=== PATIENT | male | born 1945 | race Hispanic/Latino ===

== ENCOUNTER 2017-10-23 21:01 | Inpatient (IN) | payer OTHER ==
--- OUTSIDE RECORDS SUMMARY | 2017-10-23 21:03 | XMS REPORT | Clinical Summary ---
:1945 Author Organization [facility] Address [address] [place] [address] Care Team Providers Name Role Phone Asked, No Pcp Primary Care Provider Unavailable Allergies Active Allergy Reactions Severity Noted Date Comments No Known Drug Allergies 10/10/2015 Current Medications Prescription Sig. Disp. Refills Start Date End Date Status nitroglycerin Place 1 tablet 90 tablet 1 11/30/2015 Active (NITROSTAT) 0.4 MG (0.4 mg total) SL tablet under the tongue every 5 (five) minutes as needed for chest pain for up to 90 doses. amIODarone Take 200 mg by Active (PACERONE) 200 MG mouth 2 (two) tablet times a day. carvedilol (COREG) Take 25 mg by Active 25 MG tablet mouth 2 (two) times a day with meals. At noon and bedtime potassium chloride Take 20 mEq by Active (K-DUR) 20 MEQ CR mouth 2 (two) tablet times a day. At 7 am and noon furosemide (LASIX) Take 40 mg by Active 40 mg tablet mouth 2 (two) times a day. At 7 am and noon apixaban (ELIQUIS) Take 5 mg by Active 5 mg tablet mouth 2 (two) times a day. aspirin (ECOTRIN) Take 1 tablet 30 tablet 0 09/25/2017 Active 81 MG enteric (81 mg total) 8 coated tablet by mouth daily for 30 days. digOXIN (LANOXIN) Take 1 tablet 30 tablet 0 09/25/2017 Active 125 mcg tablet (125 mcg total) 8 by mouth daily for 30 days. amIODarone TK 1 T PO D 5 11/08/2015 Discontinued (PACERONE) 100 MG 8 tablet ELIQUIS 5 mg tablet TK 1 T PO BID 5 10/31/2015 Discontinued 8 carvedilol (COREG) TAKE ONE TABLET 0 10/07/2015 Discontinued 25 MG tablet PO BID 8 lisinopril TAKE ONE TABLET 1 10/07/2015 Discontinued (PRINIVIL,ZESTRIL) PO BID 8 20 MG tablet metFORMIN TK 1 T PO BID 4 09/13/2015 Discontinued (GLUCOPHAGE) 500 MG 8 tablet omeprazole TK 1 C PO D 3 11/04/2015 Discontinued (PriLOSEC) 20 MG 8 capsule potassium chloride TK 1 T PO QD 1 11/04/2015 Discontinued (K-DUR) 20 MEQ CR 8 tablet ranitidine (ZANTAC) TK 1 T PO BID 2 10/04/2015 Discontinued 150 MG tablet ONLY TAKE WHEN 8 HAVING HEARTBURN sacubitril-valsarta Take 1 tablet Discontinued n (ENTRESTO) 49-51 by mouth 2 8 mg tablet per (two) times a tablet day. Active Problems Problem Noted Date Acute renal insufficiency 09/20/2017 CHF (congestive heart failure) 11/28/2015 Encounters Date Type Specialty Care Team Description 09/19/2017 - Hospital Encounter General Internal Petr, Acute renal insufficiency (Primary Dx); 09/24/2017 Medicine Tristin Miller, Congestive heart failure, unspecified congestive heart failure chronicity, unspecified congestive heart failure type; DO Tachycardia; Preston Snell, Hyperkalemia after 10/22/2016 Social History Tobacco Use Types Packs/Day Years Used Date Never Smoker Smokeless Tobacco: Never Used Alcohol Use Drinks/Week oz/Week Comments No Sex Assigned at Date Recorded Not on file Last Filed Vital Signs Vital Sign Reading Time Taken Blood Pressure 99/81 09/24/2017 2:50 PM CDT Pulse 70 09/24/2017 2:50 PM CDT Temperature 35.9 C (96.6 F) 09/24/2017 11:06 AM CDT Respiratory Rate 18 09/24/2017 2:50 PM CDT Oxygen Saturation 99% 09/24/2017 2:50 PM CDT Inhaled Oxygen Concentration - - Weight 89.4 kg (197 lb) 09/20/2017 7:15 AM CDT Height 170.2 cm (5' 7") 09/19/2017 9:04 PM CDT Body Mass Index 30.85 09/20/2017 7:15 AM CDT Plan of Treatment Health Maintenance Due Date Last Done Comments COLON CANCER SCREENING 1996 SHINGRIX VACCINE (#1) 1996 ZOSTER VACCINE 2006 PNEUMOCOCCAL POLYSACCHARIDE VACCINE AGE 65 AND OVER 07/29/2011 PNEUMOCOCCAL-13 07/29/2011 INFLUENZA VACCINE 12/26/2017 Procedures Procedure Name Priority Date/Time Associated Comments Diagnosis ECHOCARDIOGRAM 2D Routine 09/21/2017 11:01 Results for this COMPLETE W MMODE AM CDT procedure are in SPECTRAL COLOR DOPPLER the results (71762) section. after 10/22/2016 Results POC glucose (09/24/2017 4:39 PM)Only the most recent of16 resultswithin the time period is included. Component Value Ref Range POC glucose 113 (H) 65 - 99 mg/dL Comment: [facility] Notified RN Meter ID: [id number] Commercial Census Taker: Onesimo Don Specimen Performing Laboratory [facility] DEPARTMENT OF PATHOLOGY AND GENOMIC MEDICINE [address] [place] [id number] Estimated GFR (09/24/2017 4:00 AM)Only the most recent of5 resultswithin the time period is included. Component Value Ref Range GFR Non Af Amer 43 (A) mL/min/1.73 m2 GFR Af Amer 52 (A) mL/min/1.73 m2 Comment: Chronic kidney disease: <60 mL/min/1.73m2 Kidney failure: <15 mL/min/1.73m2 The estimated GFR is calculated from the IDMS-traceable Modification of Diet in Renal Disease Equation. The accuracy of the calculation is poor when the creatinine is normal. Calculated values >90 mL/min/1.73m2 are not reported. This equation has not been validated in children (<18 years), women, the elderly (>70 years), or ethnic groups other than Caucasians and Americans. Specimen Performing Laboratory Plasma specimen [facility] DEPARTMENT OF PATHOLOGY AND GENOMIC MEDICINE [address] [place] [address] Phosphorus level (09/24/2017 4:00 AM) Component Value Ref Range Phosphorus 3.5 2.4 - 4.5 mg/dL Specimen Performing Laboratory Plasma specimen [facility] DEPARTMENT OF PATHOLOGY AND GENOMIC MEDICINE [address] [place] [address] Magnesium level (09/24/2017 4:00 AM) Component Value Ref Range Magnesium 2.4 1.6 - 2.4 mg/dL Specimen Performing Laboratory Plasma specimen [facility] DEPARTMENT OF PATHOLOGY AND [address] [address] Hepatic function panel (09/24/2017 4:00 AM) Component Value Ref Range Albumin 3.4 (L) 3.5 - 5.0 g/dL Total bilirubin 2.3 (H) 0.0 - 1.2 mg/dL Bilirubin direct 0.6 (H) 0.0 - 0.3 mg/dL Alkaline phosphatase 59 40 - 129 U/L Protein 6.8 6.3 - 8.3 g/dL Comment: [place] 4.6-7.0 g/dL 1 week 4.4-7.6 g/dL 7 months-1year5.1-7.3 g/dL 1-2 years5.6-7.5 g/dL >3 years6.0-8.0 g/dL 18-150 6.3-8.3 g/dL ALT 39 5 - 50 U/L AST 43 10 - 50 U/L Specimen Performing Laboratory Plasma specimen [facility] DEPARTMENT OF PATHOLOGY AND [address] [address] Basic metabolic panel (09/24/2017 4:00 AM)Only the most recent of4 resultswithin the time period is included. Component Value Ref Range Sodium 141 135 - 148 mEq/L Potassium 4.0 3.5 - 5.0 mEq/L Chloride 98 98 - 112 mEq/L CO2 28 24 - 31 mEq/L Anion gap 15 7 - 15 mEq/L Comment: Starting from August , anion gap calculation no longer incorporates potassium. Please note the change. BUN 27 (H) 8 - 23 mg/dL Creatinine 1.6 (H) 0.7 - 1.2 mg/dL Glucose 114 (H) 65 - 99 mg/dL Calcium 8.7 (L) 8.8 - 10.2 mg/dL Specimen Performing Laboratory Plasma specimen [facility] DEPARTMENT OF PATHOLOGY AND [facility] MEDICINE [address] [place] [address] XR Chest 2 Vw (09/23/2017 8:34 AM) Specimen Performing Laboratory [address] [address] Narrative EXAMINATION:XR CHEST 2 VW CLINICAL HISTORY:Congestive Heart Failure COMPARISON:September 20 IMPRESSION: Atelectasis or infiltrate in the right lower lobe right-sided pleural effusion Left lung is clear Heart is slightly enlarged Degenerative changes are present throughout the bony structures without evidence of a suspicious focal lesion. Diffuse calcified atherosclerotic vascular disease throughout the arterial structures. [facility]-[id number] Procedure Note Hm Interface, Radiology Results Incoming - 09/23/2017 8:48 AM CDT EXAMINATION: XR CHEST 2 VW CLINICAL HISTORY: Congestive Heart Failure COMPARISON: September 20 IMPRESSION: Atelectasis or infiltrate in the right lower lobe right-sided pleural effusion Left lung is clear Heart is slightly enlarged Degenerative changes are present throughout the bony structures without evidence of a suspicious focal lesion. Diffuse calcified atherosclerotic vascular disease throughout the arterial structures. [facility]-[id number] Echocardiogram complete w contrast and 3D if needed (09/21/2017 11:01 AM) Specimen Performing Laboratory [facility] [address] [place] [address] Narrative Echocardiography Report [address] [place] [address] Pat.Name:LINDEN CORBETT Pat.ID:[id number] .Date: 09/21/2017 Refer.MD:LUCAS DELGADO MD Exam Time: 10:01:00 AM Study Type:Routine Echo Height:66inWeight: 197lb BSA: 1.99 m2 DOBAge:1945,72Y Sex: MALEBP:112/65 Sonogrphr: Ced Cohen MD/MEREDITH ARVIZU, RD, ROMAN Pat. Stat.:Inpatient Room:[id number] Status:Final Echo Event ID:[id number] Order ID:[id number] Reason for Study:HF; re-eval therapy guidance History / Clinical:Diabetes, Hypertension, High Cholesterol, CHF, Cardiac Arrast (2007) Procedures:2D Echo, Colorflow Doppler, Intravenous Definity Contrast Race:C SUMMARY: LV EF is severely depressed. LV filling pressure is elevated. Estimated PA systolic pressure is 41 mmHg, assuming a mean RAP of 5 mmHg. FINDINGS: LV: LV size is severely enlarged. There is mild eccentric LV hypertrophy.LV EF is severely depressed. Overall wall motionis hypokinetic. Estimated EF is 20-24%. RV: RV size is moderately enlarged. A pacemaker wire is seen in theRV. RV systolic function is moderately to severely depressed. LA: LA volume is severely enlarged. RA: RA volume is severely enlarged. A pacemaker wire is seen. AO: Aortic root diameter is normal. ARLYN: Trace posterior pericardial effusion. AV: No structural AV abnormalities noted. Mild aortic regurgitation. MV: No structural MV abnormalities noted. Mild mitral regurgitation.Etiology of MR is secondary to LV dysfunctionand remodeling. PV: No structural PV abnormalities noted. A trace of pulmonic regurgitation. TV: Dilated tricuspid annulus. Mild tricuspid regurgitation Mcdaniel: LV relaxation is impaired. LV filling pressure is elevated. Other:Estimated PA systolic pressure is 41 mmHg, assuming a mean RAPof 5 mmHg. MEASUREMENTS: 2D Parasternal [place] LVOT 2 cmLA Ds5.3 cm LVIDd6.9 cmIndex 3.5 cm/m Ao Rtd 2.9 cm Index1.5 cm/m LVIDs6.3 cm LV Lpui720.4 g(122-174) LV%fs8.8 % LVM Oyrae452.8 g/m2 IVSd 0.7 cmRWT0.2 LVPWd0.8 cm LA Sng Plane LA Area 36.6 cm2(8.8-23.4) LA Vol 143 ml Index71.8 ml/m LA LngAx 8 cm RA Sng Plane RA Area 26.6 cm2(8.3-19.5) RA Vol 103.8 ml Index52.2 ml/m RA LngAx 5.8 cm Signed 09/21/2017 05:03 PM Kevin Wu M.D. Procedure Note Interface, Radiology Results In - 09/21/2017 5:04 PM CDT Echocardiography Report [address] [place] [address] Pat.Name: LINDEN CORBETT Pat.ID: [id number] .Date: 09/21/2017 Refer.MD: LUCAS DELGADO MD Exam Time: 10:01:00 AM Study Type:Routine Echo Height: 66in Weight: 197lb BSA: 1.99 m2 Age: 4 1945,72Y Sex: MALE BP: 112/65 Sonogrphr: Ced Cohen MD/[facility], [facility], [facility]ITAL[facility]yn[facility]do Pat. Stat.:Inpatient Room: [facility] Study Status:Final Echo Event ID:[id number] Order ID: [id number] Reason for Study:HF; re-eval therapy guidance History / Clinical:Diabetes, Hypertension, High Cholesterol, CHF, Cardiac Arrast (2007) Procedures:2D Echo, Colorflow Doppler, Intravenous Definity Contrast Race: C SUMMARY: LV EF is severely depressed. LV filling pressure is elevated. Estimated PA systolic pressure is 41 mmHg, assuming a mean RAP of 5 mmHg. FINDINGS: LV: LV size is severely enlarged. There is mild eccentric LV hypertrophy. LV EF is severely depressed. Overall wall motion is hypokinetic. Estimated EF is 20-24%. RV: RV size is moderately enlarged. A pacemaker wire is seen in the RV. RV systolic function is moderately to severely depressed. LA: LA volume is severely enlarged. RA: RA volume is severely enlarged. A pacemaker wire is seen. AO: Aortic root diameter is normal. ARLYN: Trace posterior pericardial effusion. AV: No structural AV abnormalities noted. Mild aortic regurgitation. MV: No structural MV abnormalities noted. Mild mitral regurgitation. Etiology of MR is secondary to LV dysfunction and remodeling. PV: No structural PV abnormalities noted. A trace of pulmonic regurgitation. TV: Dilated tricuspid annulus. Mild tricuspid regurgitation Mcdaniel: LV relaxation is impaired. LV filling pressure is elevated. Other: Estimated PA systolic pressure is 41 mmHg, assuming a mean RAP of 5 mmHg. MEASUREMENTS: 2D Parasternal [place] LVOT 2 cm LA Ds 5.3 cm LVIDd 6.9 cm Index 3.5 cm/m Ao Rtd 2.9 cm Index 1.5 cm/m LVIDs 6.3 cm LV Mass 228.4 g (122-174) LV%fs 8.8 % LVM Index 114.8 g/m2 IVSd 0.7 cm RWT 0.2 LVPWd 0.8 cm LA Sng Plane LA Area 36.6 cm2 (8.8-23.4) LA Vol 143 ml Index 71.8 ml/m LA LngAx 8 cm RA Sng Plane RA Area 26.6 cm2 (8.3-19.5) RA Vol 103.8 ml Index 52.2 ml/m RA LngAx 5.8 cm Signed 09/21/2017 05:03 PM Kevin Wu M.D. ECG 12 lead (09/21/2017 8:52 AM)Only the most recent of2 resultswithin the time period is included. Component Value Ref Range Ventricular rate 116 Atrial rate 116 IA interval 112 QRSD interval 162 QT interval 380 QTC interval 528 P axis 1 88 QRS axis 1 -47 T wave axis 128 EKG impression Electronic ventricular pacemaker-In automated comparison with ECG of 19-SEP-2017 21:09,-Vent. rate has increased BY 10 BPM- Specimen Performing Laboratory [facility] MUSE [address] [place] [phone] US Renal (09/20/2017 5:40 PM) Specimen Performing Laboratory [facility] [address] [place] [address] Narrative EXAMINATION:US RENAL CLINICAL HISTORY:Evaluate size and position of the kidneys COMPARISON:None. TECHNIQUE:Ultrasound evaluation of the kidneys and bladder. IMPRESSION: 1.The right kidney measures 11.2 x 4.9 x 4.3 cm.The left kidney measures 10.7 x 4.7 x 4.4 cm.There is bilateral increased renal cortical echogenicity compatible with renal parenchymal disease. 2.No hydronephrosis or solid mass lesions. 3.Mild bladder wall thickening cannot be excluded. [facility]-[id number] Procedure Note Interface, Radiology Results Incoming - 09/20/2017 7:06 PM CDT EXAMINATION: US RENAL CLINICAL HISTORY: Evaluate size and position of the kidneys COMPARISON: None. TECHNIQUE: Ultrasound evaluation of the kidneys and bladder. IMPRESSION: 1. The right kidney measures 11.2 x 4.9 x 4.3 cm. The left kidney measures 10.7 x 4.7 x 4.4 cm. There is bilateral increased renal cortical echogenicity compatible with renal parenchymal disease. 2. No hydronephrosis or solid mass lesions. 3. Mild bladder wall thickening cannot be excluded. [facility]-[id number] Urine protein electrophoresis, random (09/20/2017 3:26 PM) Component Value Ref Range Urine protein concentration 62 mg/dL UPE albumin 79.2 % UPE globulin 20.8 % UPE extended interpretation See Comment Comment: An abnormal random urine protein study with proteinuria equivalent to 620 mg/L. The proteinuria is in a glomerular pattern. UPE interpretation See CommentComment: Lyn Zurita, PhD; Sola Dupree, PhD; Roxy Davis MD Specimen Performing Laboratory Urine [facility] DEPARTMENT OF PATHOLOGY AND GENOMIC MEDICINE [address] [place] [address] Urinalysis, automated with microscopy (09/20/2017 3:26 PM) Component Value Ref Range Color, UA Viky Appearance, UA Clear Specific gravity, UA 1.018 1.001 - 1.035 pH, UA 5.0 5.0 - 8.5 Protein, UA 2+ (A) Negative Glucose, UA Negative Negative Ketones, UA Negative Negative Bilirubin, UA Negative Negative Blood, UA Negative Negative Nitrite, UA Negative Negative Urobilinogen, UA 4.0 (A) <2.0 Leukocyte esterase, UA Negative Negative WBC, UA 1 0 - 1 /HPF RBC, UA None seen 0 - 5 /HPF Bacteria, UA Few None seen Granular casts, UA 3 (H) 0 - 1 /LPF Hyaline casts, UA >20 (A) /LPF Yeast, UA None seen Yeast with pseudohyphae, UA None seen Specimen Performing Laboratory Urine [facility] DEPARTMENT OF PATHOLOGY AND GENOMIC MEDICINE [address] [place] [address] Sedimentation rate (09/20/2017 2:00 PM) Component Value Ref Range Sedimentation rate 4 0 - 10 mm/hr Specimen Performing Laboratory Blood [facility] DEPARTMENT OF PATHOLOGY AND GENOMIC MEDICINE [address] [place] [address] Alpha lambda free light chain with ratio (09/20/2017 1:50 PM) Component Value Ref Range Alpha light chain 37.34 (H) 3.30 - 19.40 mg/L Lambda light chain 15.22 5.70 - 26.30 mg/L Alpha lambda ratio 2.45 (H) 0.26 - 1.65 Specimen Performing Laboratory Plasma specimen [facility] DEPARTMENT OF PATHOLOGY AND [facility] MEDICINE [address] [place] [address] Serum electrophoresis (09/20/2017 1:50 PM) Component Value Ref Range Protein 6.6 6.3 - 8.3 g/dL Comment: 4.6-7.0 g/dL 1 week 4.4-7.6 g/dL 7 months-1year5.1-7.3 g/dL 1-2 years5.6-7.5 g/dL >3 years6.0-8.0 g/dL 18-150 6.3-8.3 g/dL SPE albumin 4.30 4.00 - 5.30 g/dL SPE alpha 1 0.15 0.10 - 0.25 g/dL SPE alpha 2 0.53 (L) 0.58 - 0.84 g/dL SPE beta 0.69 0.50 - 1.10 g/dL SPE gamma 0.94 0.60 - 1.30 g/dL SPE extended interpretation See Comment Comment: Alpha-2 globulins are decreased most likely due to decreased haptoglobin and/or alpha-2 macroglobulin. SPE interpretation See CommentComment: Lyn Zurita, PhD; Sola Dupree, PhD; Roxy Davis MD Specimen Performing Laboratory Serum [facility] DEPARTMENT OF PATHOLOGY AND GENOMIC MEDICINE [address] [place] [address] Troponin (09/20/2017 3:13 AM)Only the most recent of2 resultswithin the time period is included. Component Value Ref Range Troponin <0.30 0.00 - 0.30 ng/mL Comment: 0.30 - 1.49 ng/mlMay indicate increased risk of acute coronary syndrome. >=1.5 ng/mlConsistent with acute myocardial infarction. The diagnostic value of a single normal or non-diagnostic result is questionable.Serial samples at 2-6 hour intervals are required to rule out acute myocardial injury. Specimen Performing Laboratory Plasma specimen [facility] DEPARTMENT OF PATHOLOGY AND GENOMIC MEDICINE [address] [place] [address] XR Chest 1 Vw Portable (09/20/2017 1:00 AM) Specimen Performing Laboratory [facility] [address] [place] [address] Narrative EXAMINATION: XR CHEST 1 VW PORTABLE CLINICAL HISTORY: Chest Pain, SHORTNESS OF BREATH COMPARISON:06/08/2015 chest x-ray. IMPRESSION: Patchy right basilar airspace disease could most likely represents atelectasis although pneumonia not entirely excluded. Small right pleural effusion.Left pleural space is normal. Enlarged cardiac silhouette similar to the prior study.Left chest cardiac device. No acute osseous abnormalities. [facility]-[id number] Procedure Note Interface, Radiology Results Incoming - 09/20/2017 1:06 AM CDT EXAMINATION: XR CHEST 1 VW PORTABLE CLINICAL HISTORY: Chest Pain, SHORTNESS OF BREATH COMPARISON: 06/08/2015 chest x-ray. IMPRESSION: Patchy right basilar airspace disease could most likely represents atelectasis although pneumonia not entirely excluded. Small right pleural effusion. Left pleural space is normal. Enlarged cardiac silhouette similar to the prior study. Left chest cardiac device. No acute osseous abnormalities. [facility]-[id number] ECG ED Preliminary Interpretation - NOT AN ORDER (09/20/2017 12:27 AM) Narrative Tristin Hammond DO 09/20/20172:43 AM ECG ED Preliminary Interpretation - Not an Order Performed by: TRISTIN HAMMOND Authorized by: TRISTIN HAMMOND ECG reviewed by ED Physician in the absence of a tape stringer: yes Previous ECG: Previous ECG:Unavailable Interpretation: Interpretation: abnormal Rate: ECG rate:106 ECG rate assessment: tachycardic Rhythm: Rhythm: paced QRS: QRS intervals:Wide (712) ST segments: ST segments:Normal T waves: T waves: normal Other findings: Other findings: prolonged qTc interval Other findings comment:547 Partial thromboplastin time, activated (09/19/2017 9:46 PM) Component Value Ref Range PTT 43.5 (H) 23.0 - 36.0 sec Comment: PTT therapeutic range for unfractionated heparin is 61.0-112.0 seconds which corresponds to Anti-Xa 0.3-0.7 U/ml. Specimen Performing Laboratory Blood [facility] DEPARTMENT OF PATHOLOGY AND GENOMIC MEDICINE [address] [place] [address] Prothrombin time with INR (09/19/2017 9:46 PM) Component Value Ref Range Prothrombin time 35.8 (H) 12.0 - 15.0 sec INR 3.5 Comment: The International Normalized Ratio (INR) is a therapeutic monitoring tool for patients who are stable on oral anticoagulant therapy. An INR of 2.0-3.0 is suggested for deep vein thrombosis/pulmonary embolism. Specimen Performing Laboratory Blood [facility] DEPARTMENT OF PATHOLOGY AND GENOMIC MEDICINE [address] [place] [address] CBC with platelet and differential (09/19/2017 9:46 PM) Component Value Ref Range WBC 7.21 4.50 - 11.00 k/uL RBC 5.76 4.40 - 6.00 m/uL HGB 17.5 14.0 - 18.0 g/dL HCT 54.5 (H) 41.0 - 51.0 % MCV 94.6 82.0 - 100.0 fL MCH 30.4 27.0 - 34.0 pg MCHC 32.1 31.0 - 37.0 g/dL RDW - SD 47.8 37.0 - 55.0 fL MPV 11.3 8.8 - 13.2 fL Platelet count 172 150 - 400 k/uL Nucleated RBC 0.00 /100 WBC Neutrophils 64.3 39.0 - 69.0 % Lymphocytes 24.8 (L) 25.0 - 45.0 % Monocytes 10.3 (H) 0.0 - 10.0 % Eosinophils 0.1 0.0 - 5.0 % Basophils 0.4 0.0 - 1.0 % Immature granulocytes 0.1Comment: "Immature granulocytes" 0.0 - 1.0 % (promyelocytes, myelocytes, metamyelocytes) Specimen Performing Laboratory Blood [facility] DEPARTMENT OF PATHOLOGY AND [facility] MEDICINE [address] [place] [address] B natriuretic peptide (09/19/2017 9:46 PM) Component Value Ref Range BNP 1,056 (H) 0 - 100 pg/mL Specimen Performing Laboratory Blood [facility] DEPARTMENT OF PATHOLOGY AND [facility] MEDICINE [address] [place] [address] Creatine kinase, total (CPK) (09/19/2017 9:46 PM) Component Value Ref Range Creatine kinase 65 39 - 308 U/L Specimen Performing Laboratory Plasma specimen [facility] DEPARTMENT OF PATHOLOGY AND [address] [address] Comprehensive metabolic panel (09/19/2017 9:46 PM) Component Value Ref Range Sodium 137 135 - 148 mEq/L Potassium 5.1 (H) 3.5 - 5.0 mEq/L Chloride 99 98 - 112 mEq/L CO2 24 24 - 31 mEq/L Anion gap 14 7 - 15 mEq/L Comment: Starting from August , anion gap calculation no longer incorporates potassium. Please note the change. BUN 29 (H) 8 - 23 mg/dL Creatinine 1.7 (H) 0.7 - 1.2 mg/dL Glucose 131 (H) 65 - 99 mg/dL Calcium 8.8 8.8 - 10.2 mg/dL Protein 7.2 6.3 - 8.3 g/dL Comment: 4.6-7.0 g/dL 1 week 4.4-7.6 g/dL 7 months-1year5.1-7.3 g/dL 1-2 years5.6-7.5 g/dL >3 years6.0-8.0 g/dL 18-150 6.3-8.3 g/dL Albumin 3.6 3.5 - 5.0 g/dL A/G ratio 1.0 0.7 - 3.8 Alkaline phosphatase 66 40 - 129 U/L AST 48 10 - 50 U/L ALT 32 5 - 50 U/L Total bilirubin 2.2 (H) 0.0 - 1.2 mg/dL Specimen Performing Laboratory Plasma specimen [facility] DEPARTMENT OF PATHOLOGY AND GENOMIC MEDICINE [address] [place] [address] after 10/22/2016 Insurance Payer Benefit Plan / Group Subscriber ID Type Phone Address MEDICARE MEDICARE PART A AND B xxxxxxxxxx Medicare [place] MEDICA[place] MEDICAID xxxxxxxxx Medicaid [phone] [place] [phone]
[2017-10-23 23:20] LABS: Absolute Lymphocytes (CBC) 1.7 K/uL (0.7-4.9); Absolute Monocytes 0.8 K/uL (0.1-1.3); Basophils % 0.6 % (0-1.3); Eosinophils % 0.3 % (0-4.4); Hematocrit 55.7 % (39.6-49.0); Lymphocytes % 26.5 % (15.3-44.8); MCV 93.9 fL (80-100); MPV 10.1 fL (7.6-11.3); Monocytes % 11.6 % (3.3-12.3); RBC Red Blood Cell Count 5.93 M/uL (4.33-5.43)
[2017-10-24 00:27] LABS: Albumin 3.9 g/dL (3.2-5.5); Bilirubin Direct 0.9 mg/dL (0-0.2); Bilirubin Total 3.6 mg/dL (0.3-1.2); Magnesium 2.3 mg/dL (1.8-2.5); Protein, Total 7.5 g/dL (6.0-8.3)
[2017-10-24 00:31] LABS: Potassium 4.9 mEq/L (3.6-5.0)
--- NOTE | 2017-10-24 01:58 | EDPHYS ---
Physician Documentation [facility] Name: Onesimo Dorantes Age: 72 yrs Sex: Male : 1945 Arrival Date: 10/23/2017 Time: 21:28 Bed 19 Private MD: ED Physician Hubert Arroyo HPI: 10/23 22:42 This 72 yrs old Male presents to ER via Wheelchair with complaints of Fluid rn Retention. 22:42 The patient has shortness of breath at rest, with light activity. Onset: The rn symptoms/episode began/occurred 1 week(s) ago. Duration: The symptoms are continuous. The patient's shortness of breath is aggravated by exertion, light activity, supine position, talking, walking, is alleviated by sitting up. Associated signs and symptoms: Pertinent positives: non-productive cough, Pertinent negatives: chest pain, fever, hemoptysis, loss of consciousness, vomiting. Severity of symptoms: At their worst the symptoms were moderate in the emergency department the symptoms are unchanged. The patient has experienced similar episodes in the past. The patient has been recently seen by a physician:. Reports sob with exertion and orthopnea, + lower ext swelling and abd bloating, unsure if gas or not, normal bowel movements, no fever, no chest pain. Discharged 2 weeks ago for CHF, f/u with pcp, taking lasix and digoxin.. Historical: - Allergies: 21:53 No Known Allergies; lp1 - Home Meds: 21:53 Eliquis 5 mg oral tab 1 tab 2 times per day [Active]; furosemide 40 mg Oral tab 1 tab 2 lp1 times per day [Active]; potassium chloride 20 mEq Oral TbER 1 tab 2 times per day [Active]; carvedilol 25 mg oral tab 1 tab 2 times per day [Active]; - PMHx: 21:53 CHF; Hypertension; Myocardial infarction; lp1 - PSHx: 21:53 Pacemaker/Defibrillator; lp1 21:53 Cholecystectomy; lp1 - Immunization history:: Adult Immunizations up to date. - Social history:: Smoking status: Patient/guardian denies using tobacco. - Ebola Screening: : No symptoms or risks identified at this time. - Family history:: not pertinent. - Hospitalizations: : Patient was recently seen at. ROS: 22:42 Constitutional: Negative for fever, chills, and weight loss, Eyes: Negative for injury, rn pain, redness, and discharge, Neck: Negative for injury, pain, and swelling, Cardiovascular: Negative for chest pain, palpitations Respiratory: Negative for wheezing, and pleuritic chest pain, Abdomen/GI: Negative for nausea, vomiting, diarrhea, and constipation, + abd distension and bloating Back: Negative for injury and pain, MS/Extremity: Negative for injury and deformity, Skin: Negative for injury, rash, and discoloration, Neuro: Negative for headache, numbness, tingling, and seizure. Exam: 22:42 Constitutional: This is a well developed, well nourished patient who is awake, alert, rn and in no acute distress. Head/Face: Normocephalic, atraumatic. Eyes: Pupils equal round and reactive to light, extra-ocular motions intact. Lids and lashes normal. Conjunctiva and sclera are non-icteric and not injected. Cornea within normal limits. Periorbital areas with no swelling, redness, or edema. Neck: Trachea midline Supple, full range of motion without nuchal rigidity, or vertebral point tenderness. No Meningismus. Cardiovascular: Tachycardic, irregular, no murmur Respiratory: + mild tachypnea, no retractions, diminished at bases Abdomen/GI: Soft, non-tender, with normal bowel sounds. No guarding or rebound. No evidence of tenderness throughout. MS/ Extremity: Pulses equal, no cyanosis. Bilateral pitting edema with LLE > RLE. Neuro: Awake and alert, GCS 15, oriented to person, place, time, and situation. Cranial nerves II-XII grossly intact. Motor strength 5/5 in all extremities. Sensory grossly intact. Vital Signs: 21:53 BP 108 / 89; Pulse 115; Resp 18; Temp 97.6(O); Pulse Ox 100% on R/A; Weight 90.72 kg; lp1 Height 5 ft. 7 in. (170.18 cm); Pain 2/10; 23:29 BP 116 / 86; Pulse 110; Resp 19 S; Pulse Ox 100% on R/A; Pain 2/10; jd3 05/30 00:35 BP 114 / 96; Pulse 113; Resp 18 S; Pulse Ox 98% on R/A; Pain 2/10; jd3 01:42 BP 101 / 74; Pulse 113; Resp 18 S; Pulse Ox 99% on R/A; Pain 2/10; jd3 02:34 BP 103 / 91; Pulse 114; Resp 18 S; Pulse Ox 98% on R/A; Pain 2/10; jd3 10/23 21:53 Body Mass Index 31.32 (90.72 kg, 170.18 cm) lp1 MDM: 10/23 22:14 Patient medically screened. rn 10/24 01:56 Differential diagnosis: CHF exacerbation, Pneumothorax pulmonary edema. Data reviewed: rn vital signs, nurses notes, lab test result(s), EKG, radiologic studies, plain films, and as a result, I will admit patient. Counseling: I had a detailed discussion with the patient and/or guardian regarding: the historical points, exam findings, and any diagnostic results supporting the discharge/admit diagnosis, lab results, radiology results, the need for further work-up and treatment in the hospital. Response to treatment: the patient's symptoms have mildly improved after treatment, and as a result, I will admit patient. Admission orders: after a detailed discussion of the patient's condition and case, the admit orders are written by me. 10/23 22:25 Order name: Basic Metabolic Panel; Complete Time: 00: rn 10/23 22:25 Order name: BNP; Complete Time: 00: rn 10/23 22:25 Order name: CBC with Diff; Complete Time: 00:13 rn 10/23 22:25 Order name: LFT's; Complete Time: 00: rn 10/23 22:25 Order name: Magnesium; Complete Time: 00: rn 10/23 22:25 Order name: Troponin (emerg Dept Use Only); Complete Time: 00: rn 10/23 22:25 Order name: XRAY Chest (1 view) rn 10/23 22:25 Order name: EKG; Complete Time: 22:25 rn 10/23 22:25 Order name: Cardiac monitoring; Complete Time: 22:28 rn 10/23 22:25 Order name: Extremity Venous Uni Ltd US rn 10/23 22:25 Order name: Lipase; Complete Time: 00:32 rn 10/24 00:58 Order name: Abdomen EDMS 10/23 22:25 Order name: EKG - Nurse/Tech; Complete Time: 22:56 rn 10/23 22:25 Order name: IV Saline Lock; Complete Time: 23:14 rn 10/23 22:25 Order name: Labs collected and sent; Complete Time: 23:14 rn 10/23 22:25 Order name: O2 Per Protocol; Complete Time: 22:28 rn 10/23 22:25 Order name: O2 Sat Monitoring; Complete Time: 22:27 rn Administered Medications: No medications were administered Disposition: 10/24/17 01:57 Hospitalization ordered by Reilly Taveras for Inpatient Admission. Preliminary diagnosis are Pleural effusion, not elsewhere classified, Dyspnea, unspecified, Unspecified combined systolic (congestive) and diastolic (congestive) heart failure. - Bed requested for Telemetry/MedSurg (Inpatient). - Status is Inpatient Admission. jd3 - Condition is Stable. - Problem is an ongoing problem. - Symptoms have improved. UTI on Admission? No Signatures: Dispatcher [employer] [facility] Jo-Ann Pedraza RN RN dw Hubert Arroyo MD MD rn Pena, Laura, RN RN lp1 Braeden Cabrera RN RN jd3 Betzy Ackerman Corrections: (The following items were deleted from the chart) 00:13 10/23 22:25 Creatinine for Radiology+C.LAB.BRZ ordered. [facility] 10/24 00:58 10/23 22:26 Abdomen Pelvis W Con+CT.RAD.BRZ ordered. [facility] 10/24 02:01 01:57 Hospitalization Ordered by Reilly Taveras MD for Inpatient Admission. Preliminary eb diagnosis is Pleural effusion, not elsewhere classified; Dyspnea, unspecified; Unspecified combined systolic (congestive) and diastolic (congestive) heart failure. Bed requested for Telemetry/MedSurg (Inpatient). Status is Inpatient Admission. Condition is Stable. Problem is an ongoing problem. Symptoms have improved. UTI on Admission? No. rn 02:19 02:01 10/24/2017 01:57 Hospitalization Ordered by Reilly Taveras MD for Inpatient dw Admission. Preliminary diagnosis is Pleural effusion, not elsewhere classified; Dyspnea, unspecified; Unspecified combined systolic (congestive) and diastolic (congestive) heart failure. Bed requested for Telemetry/MedSurg (Inpatient). Status is Inpatient Admission. Condition is Stable. Problem is an ongoing problem. Symptoms have improved. UTI on Admission? No. eb 03:13 02:19 10/24/2017 01:57 Hospitalization Ordered by Reilly Taveras MD for Inpatient jd3 Admission. Preliminary diagnosis is Pleural effusion, not elsewhere classified; Dyspnea, unspecified; Unspecified combined systolic (congestive) and diastolic (congestive) heart failure. Bed requested for Telemetry/MedSurg (Inpatient). Status is Inpatient Admission. Condition is Stable. Problem is an ongoing problem. Symptoms have improved. UTI on Admission? No. dw
--- NOTE | 2017-10-24 01:58 | ER ---
Nurse's Notes [facility] Name: Onesimo Dorantes Age: 72 yrs Sex: Male : 1945 Arrival Date: 10/23/2017 Time: 21:28 Bed 19 Private MD: Diagnosis: Pleural effusion, not elsewhere classified;Dyspnea, unspecified;Unspecified combined systolic (congestive) and diastolic (congestive) heart failure Presentation: 10/23 21:49 Presenting complaint: Patient states: Swelling to lower legs, states feeling weak lp1 today, decreased appetite, feeling bloating to abdomen; Hx of CHF, released from [facility] 2 weeks ago. Transition of care: patient was not received from another setting of care. Onset of symptoms was October 23, 2017. Risk Assessment: Do you want to hurt yourself or someone else? Patient reports no desire to harm self or others. Initial Sepsis Screen: Does the patient meet any 2 criteria? No. Patient's initial sepsis screen is negative. Does the patient have a suspected source of infection? No. Patient's initial sepsis screen is negative. Care prior to arrival: None. 21:49 Method Of Arrival: Wheelchair lp1 21:49 Acuity: MICHAEL 3 lp1 Triage Assessment: 21:54 General: Appears in no apparent distress. Behavior is appropriate for age. Pain: lp1 Complains of pain in abdomen Quality of pain is described as pressure. Neuro: Level of Consciousness is awake, alert, obeys commands. Respiratory: Respiratory effort is even, unlabored. Derm: Skin is pink, warm \\T\\ dry. Historical: - Allergies: 21:53 No Known Allergies; lp1 - Home Meds: 21:53 Eliquis 5 mg oral tab 1 tab 2 times per day [Active]; furosemide 40 mg Oral tab 1 tab 2 lp1 times per day [Active]; potassium chloride 20 mEq Oral TbER 1 tab 2 times per day [Active]; carvedilol 25 mg oral tab 1 tab 2 times per day [Active]; - PMHx: 21:53 CHF; Hypertension; Myocardial infarction; lp1 - PSHx: 21:53 Pacemaker/Defibrillator; lp1 21:53 Cholecystectomy; lp1 - Immunization history:: Adult Immunizations up to date. - Social history:: Smoking status: Patient/guardian denies using tobacco. - Ebola Screening: : No symptoms or risks identified at this time. - Family history:: not pertinent. - Hospitalizations: : Patient was recently seen at. Screenin:53 Abuse screen: Denies threats or abuse. Denies injuries from another. Nutritional lp1 screening: No deficits noted. Tuberculosis screening: No symptoms or risk factors identified. Fall Risk None identified. Assessment: 22:27 General: Appears uncomfortable, Behavior is calm, cooperative, appropriate for age. jd3 Pain: Complains of pain in abdomen Pain currently is 5 out of 10 on a pain scale. Quality of pain is described as aching, pressure. Neuro: Level of Consciousness is awake, alert, obeys commands, Oriented to person, place, time, situation. Cardiovascular: Heart tones S1 S2 present Capillary refill < 3 seconds Patient's skin is warm and dry. Rhythm is atrial pacer. Respiratory: Airway is patent Respiratory effort is even, unlabored, Respiratory pattern is regular, symmetrical, Breath sounds are clear bilaterally. GI: Abdomen is round Bowel sounds present X 4 quads. Abd is soft and non tender X 4 quads. Reports abdomen pressure "like gas pains." Patient currently denies nausea, vomiting. : No signs and/or symptoms were reported regarding the genitourinary system. EENT: No signs and/or symptoms were reported regarding the EENT system. Derm: Skin is intact, Skin is dry, Skin is normal, Skin temperature is warm. Musculoskeletal: Circulation, motion, and sensation intact. Range of motion: intact in all extremities. 23:29 Reassessment: Patient appears in no apparent distress at this time. Patient and/or jd3 family updated on plan of care and expected duration. Pain level reassessed. Patient is alert, oriented x 3, equal unlabored respirations, skin warm/dry/pink. CT notified of pt finishing PO contrast. 10/24 00:35 Reassessment: Patient appears in no apparent distress at this time. Patient and/or jd3 family updated on plan of care and expected duration. Pain level reassessed. Patient is alert, oriented x 3, equal unlabored respirations, skin warm/dry/pink. 01:43 Reassessment: Patient appears in no apparent distress at this time. Patient and/or jd3 family updated on plan of care and expected duration. Pain level reassessed. Patient is alert, oriented x 3, equal unlabored respirations, skin warm/dry/pink. awaiting results and provider's disposition. 01:53 Reassessment: provider at bedside discussing plan of care. jd3 02:34 Reassessment: Patient appears in no apparent distress at this time. Patient and/or jd3 family updated on plan of care and expected duration. Pain level reassessed. Patient is alert, oriented x 3, equal unlabored respirations, skin warm/dry/pink. awaiting admission orders for admission. 03:12 Reassessment: Patient appears in no apparent distress at this time. Patient and/or jd3 family updated on plan of care and expected duration. Pain level reassessed. Patient is alert, oriented x 3, equal unlabored respirations, skin warm/dry/pink. pt reported understanding of need for admissions. Vital Signs: 10/23 21:53 BP 108 / 89; Pulse 115; Resp 18; Temp 97.6(O); Pulse Ox 100% on R/A; Weight 90.72 kg; lp1 Height 5 ft. 7 in. (170.18 cm); Pain 2/10; 23:29 BP 116 / 86; Pulse 110; Resp 19 S; Pulse Ox 100% on R/A; Pain 2/10; jd3 10/24 00:35 BP 114 / 96; Pulse 113; Resp 18 S; Pulse Ox 98% on R/A; Pain 2/10; jd3 01:42 BP 101 / 74; Pulse 113; Resp 18 S; Pulse Ox 99% on R/A; Pain 2/10; jd3 02:34 BP 103 / 91; Pulse 114; Resp 18 S; Pulse Ox 98% on R/A; Pain 2/10; jd3 10/23 21:53 Body Mass Index 31.32 (90.72 kg, 170.18 cm) lp1 ED Course: 10/23 21:28 Patient arrived in ED. as 21:51 Triage completed. lp1 21:51 Arm band placed on left wrist. lp1 22:08 Dayton Shearer, RN is Primary Nurse. mb3 22:13 Primary Nurse role handed off by Dayton Shearer, ABHI jd3 22:13 Braeden Cabrera RN is Primary Nurse. jd3 22:14 Hubert Arroyo MD is Attending Physician. rn 22:28 Oral contrast given. sj 22:29 Patient has correct armband on for positive identification. Placed in gown. Bed in low jd3 position. Call light in reach. Side rails up X 1. Adult w/ patient. 22:38 X-ray completed. Portable x-ray completed in exam room. Patient tolerated procedure bb2 well. 22:40 XRAY Chest (1 view) In Process Unspecified. EDMS 22:53 Extremity Venous Uni Ltd US In Process Unspecified. EDMS 22:55 EKG done, by ED staff, reviewed by Hubert Arroyo MD. ms 23:05 Missed attempt(s): 20 gauge in right forearm. Bleeding controlled, band aid applied, jd3 catheter tip intact. 23:10 Inserted saline lock: 18 gauge in right forearm, using aseptic technique. Blood jd3 collected. 10/24 00:58 CT completed. Patient moved to CT via wheelchair. Patient moved back from CT. cw1 01:16 Abdomen In Process Unspecified. EDMS 01:57 Reilly Taveras MD is Hospitalizing Provider. rn 02:25 No provider procedures requiring assistance completed. Patient admitted, IV remains in jd3 place. Administered Medications: No medications were administered Outcome: 01:57 Decision to Hospitalize by Provider. rn 03:06 Admitted to Tele accompanied by tech, via wheelchair, room 421, with chart, Report jd3 called to Zara MOE 03:06 Condition: stable 03:06 Instructed on the need for admit, Demonstrated understanding of instructions. 03:13 Patient left the ED. jd3 Signatures: Dispatcher [employer] EDMS Amber Mcmahon Amelia as Solis, Maria ms Hubert Arroyo MD MD rn Woodley, Crystal cw1 Rafia Singh RN RN lp1 Braeden Cabrera RN RN jd3 Miya Penaloza bb2 Dayton Shearer, RN RN mb3 Corrections: (The following items were deleted from the chart) 10/23 23: 23:29 Reassessment: Patient appears in no apparent distress at this time. Patient jd3 and/or family updated on plan of care and expected duration. Pain level reassessed. Patient is alert, oriented x 3, equal unlabored respirations, skin warm/dry/pink. CT notified of pt finishing contrast. jd3 10/24 02:31 10/23 22:27 Cardiovascular: Heart tones S1 S2 present Capillary refill < 3 seconds jd3 Patient's skin is warm and dry. jd3 10/24 02:31 10/23 22:27 Cardiovascular: Heart tones S1 S2 present Capillary refill < 3 seconds jd3 Patient's skin is warm and dry. Rhythm is jd3
[2017-10-24] MEDS ORDERED: ACETAMINOPHEN 500 MG TAB PO PRN (03:20)
[2017-10-24] MEDS ORDERED: ONDANSETRON 4 MG/2 ML VIAL IV PRN (03:20)
--- NOTE | 2017-10-24 05:52 | P.HP ---
Certification for Inpatient Patient admitted to: Inpatient With expected LOS: >2 Midnights Practitioner: I am a practitioner with admitting privileges, knowledge of patient current condition, hospital course, and medical plan of care. Services: Services provided to patient in accordance with Admission requirements found in Title 42 Section 412.3 of the Code of Federal Regulations Patient History Date of Service: 10/24/17 Reason for admission: acute on chronic systolic CHF History of Present Illness: Mr Dorantes is a 72 years odl male with history of CAD, A.Fib, anticoagulated with Eliquis, chronic systolic CHF S/P ICD placement, who presented to ED complaining of Dyspnea, associated with lower extremity swelling. He also complain of abdominal distention. The patient has had this problem recently, about 3 weeks ago, and he was admitted at [facility] in [place] and treated for CHF exacerbation. At discharge from [facility] he was feeling well, but then gradually, start to be more SOB. He is taking lasix 40 mg PO BID, but has not been enough to improved his symptoms. He denied chest pain. No previous ECHO in record, but the patient states he was told that has a weak heart. No history of fever or chills. Allergies No Known Allergies Allergy (Verified 10/24/17 03:27) Home Medications: Apixaban [Eliquis] 1 tab PO BID 10/24/17 Carvedilol 1 tab PO BID 10/24/17 Furosemide 1 tab PO BID 10/24/17 Potassium Chloride 20 meq PO BID 10/24/17 - Past Medical/Surgical History Has patient received pneumonia vaccine in the past: No Diabetic: No -: CHF -: HTN -: OK -: Cardiac arrest -: CAD -: Cholecystectomy - Family History Mother -: Heart disease Father -: Heart disease - Social History Smoking Status: Never smoker Alcohol use: No CD- Drugs: No Caffeine use: No Place of Residence: Home Review of Systems 10-point ROS is otherwise unremarkable Physical Examination - Vital Signs Temperature: 96.5 F Blood Pressure: 101/82 Pulse: 99 Respirations: 22 Pulse Ox (%): 96 - Physical Exam General: Alert, In no apparent distress HEENT: Atraumatic, PERRLA, Mucous membr. moist/pink, EOMI, Sclerae nonicteric Neck: Supple, 2+ carotid pulse no bruit, No LAD, Without JVD or thyroid abnormality Respiratory: Diminished (right base.) Cardiovascular: Regular rate/rhythm, Normal S1 S2 Gastrointestinal: Normal bowel sounds, No tenderness Musculoskeletal: No tenderness, Swelling (bilateral LE edema 2+, left more than right) Integumentary: No rashes Neurological: Normal speech, Normal strength at 5/5 x4 extr, Normal tone, Normal affect Lymphatics: No axilla or inguinal lymphadenopathy - Studies Laboratory Data (last 24 hrs) 10/23/17 23:59: Creatinine Cancelled 10/23/17 23:59: B-Natriuretic Peptide 777 H 10/23/17 23:59: Sodium 135, Potassium 4.9, BUN 23 H, Creatinine 1.57 H, Glucose 121 H, Magnesium 2.3, Total Bilirubin 3.6 H, AST 35, ALT 19, Alkaline Phosphatase 70, Lipase 35 10/23/17 23:10: WBC 6.5, Hgb 17.8, Hct 55.7 H, Plt Count 189 Assessment and Plan - Problems (Diagnosis) (1) Acute on chronic systolic CHF (congestive heart failure) Current Visit: Yes Status: Acute (2) CAD (coronary artery disease) Current Visit: Yes Status: Acute Qualifiers: Coronary Disease-Associated Artery/Lesion type: [place] artery [place] vs. transplanted heart: [place] heart Associated angina: without angina Qualified Code(s): I25.10 - Atherosclerotic heart disease of [place] coronary artery without angina pectoris (3) Pleural effusion Current Visit: Yes Status: Acute - Plan The patient will be admitted to the hospital due to CHF exacerbation, with right moderate pleural effusion. His lab work is remarkable for elevated creatinine consistent with acute renal injury, elevated bilirubin with normal alk phos and transaminases, possible due to congestive liver. Will order IV lasix, fluid restrictive diet, ECHO, cardiology consult. - Advance Directives Does patient have a Living Will: No Does patient have a Durable POA for Healthcare: No - Code Status/Comfort Care Code Status Assessed: Yes Code Status: Full Code
--- NOTE | 2017-10-24 07:26 | RAD REPORT ---
EXAM DESCRIPTION: CATExsita Venous Uni Ltd10/23/2017 10:54 pm CLINICAL HISTORY: left leg pain and swelling. COMPARISON: None. FINDINGS: Left common femoral, superficial femoral, popliteal and posterior tibial veins are compre ssible and demonstrate augmentation. Doppler demonstrates good flow. IMPRESSION: No evidence of deep venous thrombosis involving the left lower extremity.
--- NOTE | 2017-10-24 07:41 | EKG ---
Test Date: 2017-10-23 Test Time: 22:52:34 System Specialist: MEASUREMENT RESULTS: Intervals: Rate: 116 PA: 132 QRSD: 150 QT: 368 QTc: 511 Crystal: P: 79 PA: 132 QRS: -44 T: 133 INTERPRETIVE STATEMENTS: Atrial-sensed ventricular-paced rhythm tracking sinus tachycardia Biventricular pacemaker detected Abnormal ECG Compared to ECG 11/23/2015 09:44:08 AV dual-paced complex(es) or rhythm no longer present Ventricular premature complex(es) no longer present Electronically Signed On 10-24-17 07:41:35 CDT by Ajit Price
--- NOTE | 2017-10-24 07:42 | RAD REPORT ---
EXAM DESCRIPTION: CT - Abdomen Pelvis Wo Contrast - 10/24/2017 6:14 am CLINICAL HISTORY: Abdominal pain with leg swelling COMPARISON: 2010 TECHNIQUE: Computed axial tomography of the abdomen and pelvis was obtained. IV was not requested. O ral contrast was given. Coronal reconstructions performed. A preliminary report was generated by [employer] and reviewed prior to this dictation All CT scans are performed using dose optimization technique as appropriate and may include automated exposure control or mA/KV adjustment according to patient size. FINDINGS: The evaluation of solid organs and vessels is limited secondary to the lack of contrast a dministration. Moderate to large right pleural effusion is present with right basilar atelectasis The liver, spleen, adrenals and kidneys appear grossly normal. A 4.1 centimeter low-density mass abuts the pancreatic body the pancreas is atrophic. Mild peripancre atic stranding is seen. there is no evidence of diverticulitis. The prostate gland is markedly enlarged. A small amount of ascites is present within the pelvis IMPRESSION: Moderate to large right pleural effusion 4.1 centimeter low-density mass abutting the pancreatic body most likely representing a pseudocyst. M ild peripancreatic stranding may indicate a mild acute pancreatitis
--- NOTE | 2017-10-24 07:43 | RAD REPORT ---
EXAM DESCRIPTION: Da Single View10/23/2017 10:45 pm CLINICAL HISTORY: Shortness of breath COMPARISON: 2016 FINDINGS: Moderate to large right pleural effusion with right basilar atelectasis is seen. The left lung appears clear. The heart is moderately enlarged. Pacemaker leads are in place IMPRESSION: Moderate to large right pleural effusion
[2017-10-24 10:21] LABS: Urine Appearance CLEAR; Urine Blood NEGATIVE (NEG); Urine Color DK YELLOW; Urine Glucose NEGATIVE (NEG); Urine Protein TRACE (NEG)
[2017-10-24 10:27] LABS: Urine Bilirubin 1+ (NEG)
[2017-10-24] MEDS: CARVEDILOL 25 MG TAB PO SCH ×2 (10:29→20:10)
[2017-10-24] MEDS: FUROSEMIDE 40 MG/4 ML VIAL IV SCH ×2 (10:30→17:27)
[2017-10-24] MEDS: APIXABAN 5 MG TABLET PO SCH ×2 (10:30→20:10)
[2017-10-24 10:51] LABS: Urine Microscopic Reflex ORDER UMIC
[2017-10-24 10:53] LABS: Urine Bacteria NONE SEEN /HPF (NONE SEEN); Urine Culture Reflex Order NOT NEEDED; Urine RBC NONE SEEN /HPF (NONE SEEN)
--- NOTE | 2017-10-24 14:16 | CON ---
History Of Present Illness: Mr. Dorantes has a cardiomyopathy. He has had a defibrillator in place s juan 2006. His third one was implanted about 2 years ago, all of that was done by Dr. Michelle. It is a 3-lead device, paces the left ventricle and right ventricle, and functions in atrial sensed ventri cular paced mode all the time. He came to the hospital with more shortness of breath. Apparently, i n August, he was at [facility] under the care of Dr. Rodriguez, his usual new grad rn. He also saw Dr. Hattie varghese. His defibrillator was checked. He does not recall any discussion of his pleural effusion but he has a very large right pleural effusion. If I look over EKGs done in our hospital over the years , it was very small in 2011, now it probably has more than 2/3rd of volume of the right side of the c hest. He has orthopnea, definitely cannot lay on his left side at all. Sometimes, he can lay on his right side, but prefers to sleep sitting up. He has abdominal bloating. His past medical history i s consistent with congestive heart failure with a defibrillator. Apparently, presented with a cardia c arrest. There are no revascularization procedures done. He takes apixaban, carvedilol, furosemide , potassium chloride, and there is an underlying renal insufficiency. I am not sure about whether th ere is liver disease in his history or not, but does seem to be on this admission. CT of the abdomen shows a 4.1 cm pancreatic pseudocyst. Small amount of ascites, mostly in the pelvis. Physical Examination: General: Mr. Dorantes is alert, oriented, pleasant, and not in distress. Lungs: Reveal absent breath sounds in the right lower half of the lung. Left side reveals no crackl es or wheezes. Heart: Reveals holosystolic murmur. There is no gallop. Abdomen: Reveals mild edema of the abdomin al wall. There is mild pedal edema. No scrotal edema. Laboratory Data: Reveals hemoglobin of 17.8, and creatinine of 1.5. B-natriuretic peptide 777. Tro ponin 0.03. His total bilirubin is 3.6 and direct is 0.9. Impression: I believe the patient has congestive heart failure with a lot of right-sided heart failu re. I think that may be one of the main causes of his right pleural effusion, but now it is truly ma ssive. Consideration should be for drainage or even pleurodesis. I think a Pulmonary consult would be in order. Diuresis will help only minimally in this situation and large pleural effusion will pro bably have to be drained. I think we are coming in late in the game and I think Mr. Dorantes is not r eally interested in having all of his care transferred to us. Perhaps having a discussion with Dr. Richi kemp about the effusion, what their plans were and I suspect they may have had a quite complete work up in August. Entry was present then as well as today. DOM/SUSHANT Voice ID: [id number] Report ID: [id number]
--- NOTE | 2017-10-24 17:25 | PN ---
Date of Progress Note: 10/24/2017 Subjective: The patient seen and examined. Chart reviewed and case discussed with RN. The patient states his shortness of breath has improved, however, still not completely resolved. The patient was at [facility] 2 weeks ago and had extensive workup done at that time. The patient does not wish to have a repeat echocardiogram done. states that she has brought the records to this faci lity. Review of Systems: Negative except as above. Medications: Reviewed. Physical Examination: Vital Signs: Temperature 97.2, heart rate 116, blood pressure 119/88, respirations 16, O2 97% on maria teresa m air. General: Awake, alert, oriented x3, in mild distress. Elderly male, obese, BMI 31. CV: S1, S2. Peripheral pulses present. Respiratory: Some diminished breath sounds. No wheezing. Gastrointestinal: Abdomen is soft, nontender, nondistended. Positive bowel sounds. Extremities: No clubbing, cyanosis. The patient does have lower extremity edema. Neurologic: Nonfocal. Laboratory Data: Pending. Venous Doppler study shows no DVT in bilateral lower extremity. Chest x- ray shows moderate to large right pleural effusion. Abdomen pelvis CT shows moderate to large right pleural effusion, 4.1 cm low-density mass abutting the pancreatic body most likely representing a pse udocyst. Mild peripancreatic stranding may indicate a mild acute pancreatitis. Assessment And Plan: 1.Acute on chronic systolic heart failure. Ejection fraction is 20-30% from records at [facility]. We will continue with diuresis and congestive heart failure guidelines with carvedilol, Lasix. The p atient was recently told to stop his Entresto. 2.Right pleural effusion, moderate to large, may need thoracentesis secondary to above. 3.Coronary artery disease, [place] artery and [place] heart without angina. 4.Status post pacemaker. 5.Essential hypertension. Resume home medications as appropriate. 6.Atrial fibrillation, on Eliquis. The patient was recently told to discontinue his amiodarone and digoxin due to side effects. The patient sees Dr. Rodriguez. 7.Obesity, BMI 31. 8.Elevated creatinine, severe acute kidney injury. Creatinine is elevated at 1.57, baseline is norm al. We will continue to monitor. 9.Gastrointestinal and deep venous thrombosis prophylaxis. The patient already on apixaban. We irwin l continue PPI. SA/MODL Voice ID: [id number] Report ID: [id number]
[2017-10-25 04:53] LABS: Absolute Lymphocytes (CBC) 1.7 K/uL (0.7-4.9); Absolute Monocytes 0.6 K/uL (0.1-1.3); Absolute Neutrophil 2.6 K/uL (1.8-8.0); Basophils % 0.4 % (0-1.3); Eosinophils % 0.3 % (0-4.4); Hematocrit 49.9 % (39.6-49.0); Lymphocytes % 33.8 % (15.3-44.8); MCH 30.2 pg (27.0-35.0); MCV 92.5 fL (80-100); MPV 10.2 fL (7.6-11.3); Monocytes % 13.1 % (3.3-12.3); RBC Red Blood Cell Count 5.39 M/uL (4.33-5.43)
[2017-10-25 04:57] LABS: Potassium 3.5 mEq/L (3.6-5.0)
[2017-10-25] MEDS ORDERED: POTASSIUM CL SA 10 MEQ TAB PO ONE (06:00)
[2017-10-25] MEDS: CARVEDILOL 25 MG TAB PO SCH ×2 (10:35→20:18)
[2017-10-25] MEDS: APIXABAN 5 MG TABLET PO SCH (10:35)
[2017-10-25] MEDS: SPIRONOLACTONE 25 MG TABLET PO SCH (10:35)
[2017-10-25] MEDS: FUROSEMIDE 40 MG/4 ML VIAL IV SCH ×2 (10:36→17:27)
--- NOTE | 2017-10-25 12:02 | PN ---
Date of Progress Note: 10/25/2017 Subjective: The patient is seen and examined. Chart reviewed and case discussed with RN. The patie nt is still not willing to undergo thoracentesis. I explained to him that given his large pleural ef fusion that may be the only option. The patient states he is having some abdominal discomfort. Othe rwise, his breathing is doing better. Review of Systems: Negative except as above. Medications: Reviewed. Physical Examination: Vital Signs: Temperature 97.1, heart rate 79, blood pressure 98/63, respirations 16, O2 saturation 9 4% on room air. General: Awake, alert, oriented x3, in some mild distress. Elderly male, obese, BMI is 30, ill-appe aring. CV: S1, S2. Peripheral pulses present. No murmurs. Respiratory: Diminished breath sounds. Some crackles heard. Gastrointestinal: Abdomen is soft, nontender, nondistended. Positive bowel sounds. Extremities: No clubbing, cyanosis, edema. Neurologic: Nonfocal. Laboratory Data: Sodium 138, potassium 3.5, chloride 101, CO2 28, BUN 24, creatinine 1.27, glucose 9 2, calcium 8.4. WBC 4.9, H and H 16.3 and 49.9, platelets 159. Assessment And Plan: A 72-year-old male with: 1.Acute on chronic systolic heart failure. Ejection fraction is 20% to 30% from records at [facility]. We will continue with IV Lasix and congestive heart failure guidelines. The patient is on beta-b locker. Recently stopped Entresto. 2.Large right-sided pleural effusion, likely needs thoracentesis. The patient at this time refusing thoracentesis. We will obtain Pulmonology consult. 3.Coronary artery disease, [place] artery and [place] heart without angina, stable. 4.Status post pacemaker. 5.Essential hypertension, stable. Currently blood pressure is slightly on the low side. 6.Atrial fibrillation, paroxysmal, on Eliquis. The patient has been discontinued on his amiodarone and digoxin. No longer takes his medications. 7.Obesity, BMI 31. 8.Pancreatic pseudocyst, stable, 4.1 cm. 9.Acute kidney injury. Creatinine is improving. We will monitor closely. 10.Gastrointestinal and deep venous thrombosis prophylaxis. Continue Eliquis, PPI. SA/MODL Voice ID: [id number] Report ID: [id number]
--- NOTE | 2017-10-25 12:46 | P.CNS ---
Date of Consult: 10/25/17 Reason for Consult: Pleural effusion Chief Complaint: Pleural effusion History of Present Illness: Patient is 72 years of age with a history of congestive heart failure as been having more progressive abdominal distension bloating and lower extremity edema he has terminal CHF and he came here to the hospital was found to have a significant pleural effusion on the right side he had a major cardiac event about 10 years ago. A cardiac arrest defibrillator placed in since then he has been doing well apparently he was also placed in hospice for 3 years patient was concerned about having a thoracentesis done and the possibility of pneumothorax patient denies any fever chills cough sputum hemoptysis Allergies amiodarone Allergy (Verified 10/24/17 09:46) Nausea/Vomiting Home Medications: Apixaban [Eliquis] 1 tab PO BID 10/24/17 Carvedilol 1 tab PO BID 10/24/17 Furosemide 1 tab PO BID 10/24/17 Potassium Chloride 20 meq PO BID 10/24/17 - Past Medical/Surgical History Diabetic: No -: CHF -: HTN -: RI -: Cardiac arrest -: CAD -: Cholecystectomy - Family History Mother Medical History: Heart disease Father Medical History: Heart disease - Social History Smoking Status: Never smoker Alcohol use: No CD- Drugs: No Caffeine use: No Place of Residence: Home Review of Systems General: Weakness Respiratory: Shortness of Breath Cardiovascular: Edema (Lower extremity edema) Physical Examination Temp Pulse Resp BP Pulse Ox 97.1 F 80 16 101/64 97 10/25/17 08:00 10/25/17 10:36 10/25/17 08:00 10/25/17 10:36 10/25/17 08:00 General: Alert, Oriented x3 HEENT: Atraumatic Neck: Supple Respiratory: Diminished (Markedly diminished air entry on the right side) Cardiovascular: Edema (2+ edema) Gastrointestinal: Normal bowel sounds - Problems (1) Acute on chronic systolic CHF (congestive heart failure) Onset Date: 10/24/17 Current Visit: Yes Status: Acute Plan: Patient is 72 years of age admitted with decompensated heart failure and is a significant effusion on the right side plan to diurese him aggressively patient is on anti coagulants for AFib need to be stopped and changed to Lovenox possible thoracentesis on Sunday or Sunday patient's vital signs are stable oxygenation is satisfactory patient is willing to undergo thoracenteses at a later time I have discussed with them risks and benefits which include bleeding infection and lung collapse any agrees Claus to stop anticoagulation at least 48 hr prior to his procedure
--- NOTE | 2017-10-25 14:46 | RAD REPORT ---
EXAM DESCRIPTION: CT - Thorax Wo Con - 10/25/2017 2:17 pm CLINICAL HISTORY: Pleural effusion, shortness of breath COMPARISON: Portable chest October 23 TECHNIQUE: Axial 5 mm thick images of the chest were obtained without IV contrast. All CT scans are performed using dose optimization technique as appropriate and may include automated exposure control or mA/KV adjustment according to patient size. FINDINGS: Left lung field is clear. No left-sided pleural effusion or pleural abnormality. Large rig ht pleural effusion is present filling approximately 40- 50% of the right hemithorax volume. There is complete right lower lobe atelectasis and near complete right middle lobe atelectasis. There is part ial right upper lobe atelectasis. No endobronchial lesion identifiable. No lung parenchymal mass or i nfiltrate seen. No pleural based mass. No pneumothorax. No abnormal mediastinal or hilar masses or lymphadenopathy seen. No gross aortic or pulmonary artery finding suspected. Cardiomegaly is present. No pericardial effusion. No chest wall mass or abnormal axillary lymphadenopathy. IMPRESSION: Large right pleural effusion without loculation. This occupies 40-50% of the right hemit horax. Complete right lower lobe atelectasis, near complete right middle lobe atelectasis and partial right upper lobe atelectasis. No underlying mass or infiltrate. Cardiomegaly without pericardial effusion.
--- NOTE | 2017-10-25 15:13 | PN ---
Mr. Dorantes was seen by Dr. Price on 10/24/2017 for congestive heart failure, history of AICD, large pleural effusion. Mr. Dorantes had a defibrillator recently placed by Dr. Michelle. He is a patient o f Dr. Rodriguez. Dr. Sweet has been consulted for possible thoracentesis. The patient is feeling be tter. We will await for Dr. Sweet's recommendation, but no further change in his cardiac therapy at this time. Diuresis will probably not help his effusion much. MINGO/SUSHANT Voice ID: [id number] Report ID: [id number]
--- NOTE | 2017-10-25 17:12 | ECHO ---
HEIGHT: 5 ft 7 in WEIGHT: 195 lb 11.2 oz DATE OF STUDY: 10/25/[address]: Braxton Sweet MD 2-DIMENSIONAL: YES M.MODE: YES DOPPLER: YES COLOR FLOW: YES TDS: PORTABLE: DEFINITY: BUBBLE STUDY: DIAGNOSIS: HISTORY OF CONGESTIVE HEART FAILURE AND PLEURAL EFFUSION CARDIAC HISTORY: CATHERIZATION: NO SURGERY: NO PROSTHETIC VALVE: NO PACEMAKER: YES MEASUREMENTS (cm) DIASTOLIC (NORMALS) SYSTOLIC (NORMALS) IVSd 0.9 (0.6-1.2) LA Diam 4.4 (1.9-4.0) LVEF 17% LVIDd 6.6 (3.5-5.7) LVIDs 6.1 (2.0-3.5) %FS 8% LVPWd 1.1 (0.6-1.2) Ao Diam 2.6 (2.0-3.7) 2 DIMENSIONAL ASSESSMENT: RIGHT ATRIUM: DILATED LEFT ATRIUM: DILATED RIGHT VENTRICLE: DILATED; PACEMAKER LEFT VENTRICLE: DILATED TRICUSPID VALVE: NORMAL MITRAL VALVE: NORMAL PULMONIC VALVE: NORMAL AORTIC VALVE: NORMAL PERICARDIAL EFFUSION: NONE AORTIC ROOT: NORMAL LEFT VENTRICULAR WALL MOTION: SEVERE GLOBAL HYPOKINESIS DOPPLER/COLOR FLOW: MILD MITRAL AND TRICUSPID REGURGITATION. MILD PULMONARY HYPERTENSION. ESTIMATED RIGHT VENTRICULAR SYSTOLIC PRESSURE 40 mmHg. COMMENTS: SEVERELY DEPRESSED LEFT VENTRICULAR EJECTION FRACTION. FOUR CHAMBER DILATION. PACEMAKER IN RIGHT VENTRICLE. MILD MITRAL AND TRICUSPID REGURGITATION. MILD PULMONARY HYPERTENSION. TECHNOLOGIST: DELVIS MODI
[2017-10-25] MEDS: ENOXAPARIN 100 MG/ML SYR SQ SCH (20:18)
[2017-10-26 05:18] LABS: Absolute Lymphocytes (CBC) 1.8 K/uL (0.7-4.9); Absolute Monocytes 0.6 K/uL (0.1-1.3); Absolute Neutrophil 2.6 K/uL (1.8-8.0); Basophils % 0.5 % (0-1.3); Eosinophils % 0.4 % (0-4.4); Lymphocytes % 35.2 % (15.3-44.8); MCH 30.2 pg (27.0-35.0); MCV 93.1 fL (80-100); MPV 10.3 fL (7.6-11.3); Monocytes % 12.4 % (3.3-12.3)
[2017-10-26 05:32] LABS: Potassium 3.8 mEq/L (3.6-5.0)
[2017-10-26 05:57] VITALS: BMI 30.7
[2017-10-26] MEDS ORDERED: POTASSIUM 25 MEQ EFFERV TAB PO ONE (06:00)
--- NOTE | 2017-10-26 07:11 | RAD REPORT ---
EXAM DESCRIPTION: RAD - Chest Single View - 10/26/2017 6:44 am CLINICAL HISTORY: CHF, pleural effusion COMPARISON: Portable chest October 23, CT chest October 25 TECHNIQUE: AP portable chest image was obtained 0623 hours . FINDINGS: Large right pleural effusion with atelectasis again noted. No clear change from prior imag ing. Left lung field remains clear with no left-sided measurable pleural effusion. Cardiomegaly remai ns. There was no pericardial effusion on the CT study. No pneumothorax. Defibrillator remains in plac e. No gross bony abnormality seen. No acute aortic findings suspected. IMPRESSION: Large right pleural effusion and atelectasis similar to comparison imaging. Cardiomegaly without vascular engorgement. No significant change from prior imaging.
[2017-10-26] MEDS: ENOXAPARIN 100 MG/ML SYR SQ SCH ×2 (08:47→20:54)
[2017-10-26] MEDS: CARVEDILOL 25 MG TAB PO SCH ×2 (08:47→20:54)
[2017-10-26] MEDS: FUROSEMIDE 40 MG/4 ML VIAL IV SCH ×2 (08:47→16:56)
[2017-10-26] MEDS: SPIRONOLACTONE 25 MG TABLET PO SCH (08:48)
--- NOTE | 2017-10-26 12:35 | PN ---
Date of Progress Note: 10/26/2017 Subjective: The patient is seen and examined. Chart reviewed and case discussed with RN and Dr. Jo Ann cole. The patient states that he is having some mild stomach upset after giving him the potassium. The patient will be scheduled for thoracentesis. He finally agreed. Eliquis has been held. Review of Systems: Negative except as above. Medications: Reviewed. Physical Examination: Vital Signs: Temperature 97.7, heart rate 114, blood pressure 121/89, respirations 20, O2 93% on maria teresa m air. General: Awake, alert, oriented x3. Elderly male, somewhat ill-appearing, obese, BMI 30.7. CV: S1, S2. Peripheral pulses present. Respiratory: Diminished breath sounds on the right. Otherwise, the left side is clear. Gastrointestinal: Abdomen is soft, nontender, and nondistended. Positive bowel sounds. Extremities: No clubbing, cyanosis, edema. Neurologic: Nonfocal. Laboratory Data: Sodium 132, potassium 3.8, chloride 102, CO2 26, BUN 24, creatinine 1.26, glucose 9 5, calcium 9.1. WBC 5, H and H 17.2 and 53, platelets 171, neutrophils 51%. Chest x-ray personally reviewed, shows large right pleural effusion and atelectasis similar to comparison imaging, cardiomeg arnaldo. No significant change from prior. Echocardiogram, EF 17%, mild pulmonary hypertension. Assessment And Plan: A 72-year-old male with: 1.Acute on chronic systolic heart failure. EF is 17%. We will continue Lasix and congestive heart failure guidelines, beta-lisa. The patient has stopped Entresto. 2.Large right-sided pleural effusion secondary to above. He will be scheduled for thoracentesis. E liquis has been held. The patient on therapeutic Lovenox, hold 12 hours prior to procedure. Appreci ate Dr. Sweet's input. 3.Coronary artery disease, [place] artery and [place] heart without angina, stable. 4.Status post pacemaker. 5.Atrial fibrillation, paroxysmal. Eliquis on hold. Currently on Lovenox. The patient has stopped his amiodarone and digoxin due to side effects. 6.Obesity, BMI 31. 7.Pancreatic pseudocyst, 4.1 cm, stable. 8.Acute kidney injury. Creatinine is improving. We will continue to monitor. 9.Gastrointestinal and deep venous thrombosis prophylaxis with PPI and Lovenox. Plan: Anticipate thoracentesis. /SUSHANT Voice ID: [id number] Report ID: [id number]
[2017-10-26 22:42] LABS: Arterial Blood Carboxyhemoglob 1.6 % (0-1.5); Blood Gas Oxyhemoglobin 96.3 % (94-97); Blood O2 Saturation 98.2 % (92-98.5)
[2017-10-27 05:16] LABS: Absolute Lymphocytes (CBC) 1.4 K/uL (0.7-4.9); Absolute Monocytes 0.6 K/uL (0.1-1.3); Absolute Neutrophil 3.5 K/uL (1.8-8.0); Basophils % 0.4 % (0-1.3); Eosinophils % 0.3 % (0-4.4); Hematocrit 51.9 % (39.6-49.0); Lymphocytes % 25.2 % (15.3-44.8); MCH 30.2 pg (27.0-35.0); MCV 92.6 fL (80-100); MPV 10.5 fL (7.6-11.3); Monocytes % 10.6 % (3.3-12.3); RBC Red Blood Cell Count 5.61 M/uL (4.33-5.43)
[2017-10-27 05:22] LABS: Potassium 4.3 mEq/L (3.6-5.0)
[2017-10-27] MEDS: SPIRONOLACTONE 25 MG TABLET PO SCH (08:41)
[2017-10-27] MEDS: ENOXAPARIN 100 MG/ML SYR SQ SCH ×2 (08:42→21:25)
[2017-10-27] MEDS: CARVEDILOL 25 MG TAB PO SCH ×2 (08:42→21:26)
[2017-10-27] MEDS: FUROSEMIDE 40 MG/4 ML VIAL IV SCH (08:43)
--- NOTE | 2017-10-27 09:10 | RAD REPORT ---
EXAM DESCRIPTION: RAD - Chest Single View - 10/27/2017 6:34 am CLINICAL HISTORY: Heart failure, pleural effusion COMPARISON: October 26 TECHNIQUE: AP portable chest image was obtained 0621 hours . FINDINGS: Large right pleural effusion is present similar or even slightly larger than prior day danny dy. Left lung field remains clear. Enlarged cardiac silhouette is still noted. No pneumothorax. No gr oss bony abnormality seen. No acute aortic findings suspected. IMPRESSION: Large right pleural effusion similar or slightly larger than prior imaging.
[2017-10-27] MEDS ORDERED: SODIUM CHLORIDE 0.9% 10ML INJ IV PRN (11:02)
[2017-10-27] MEDS ORDERED: PANTOPRAZOLE 40 MG INJ IVP SCH (11:02)
--- NOTE | 2017-10-27 11:04 | P.PN ---
Subjective Date of Service: 10/27/17 Chief Complaint: Pleural effusion Subjective: Improving (Patient states that he is improving he is able to lie down now) Review of Systems General: Weakness Respiratory: Shortness of Breath Gastrointestinal: Other (Patient has chronic abdominal bloating discomfort on eating) Physical Examination - Vital Signs Temperature: 97.3 F Blood Pressure: 101/76 Pulse: 114 Respirations: 18 Pulse Ox (%): 97 - Physical Exam General: Alert, Oriented x3 HEENT: Atraumatic Neck: Supple Respiratory: Diminished (Diminished air entry on the right side) Cardiovascular: No edema, Normal S1 S2 Assessment & Plan - Problems (Diagnosis) (1) Acute on chronic systolic CHF (congestive heart failure) Onset Date: 10/24/17 Current Visit: Yes Status: Acute Plan: Patient admitted with acute on chronic congestive heart failure significant right-sided pleural effusion patient has severe congestive heart failure on echocardiogram he also complains some abdominal board bloating distension discomfort after eating I have added Protonix patient appears to have a pseudocyst on abdominal CT (2) Pleural effusion Onset Date: 10/24/17 Current Visit: Yes Status: Acute Plan: Plan to do a large volume thoracentesis on Sunday at the bedside using ultrasonic guidance continue with diuresis monitor renal function and potassium kidney function is slightly worse reduce dose of Lasix
[2017-10-27] MEDS: PANTOPRAZOLE 40MG TABLET PO SCH ×2 (12:11→17:08)
[2017-10-27] MEDS: SIMETHICONE 125 MG TAB PO PRN ×2 (15:29→21:28)
--- NOTE | 2017-10-27 16:37 | PN ---
Subjective: Currently, patient lying in bed. He looks comfortable. at the bedside. He is sti ll feeling full anytime he eats. No significant shortness of breath. No chest pain. No nausea or v omiting. Objective: Vital Signs: Currently, blood pressure 101/76, respiratory rate 18, pulse 114, temperatu re 97.3. General: He is fully alert, oriented x3. Does not look in any distress. HEENT: Atraumatic, normocephalic. PERRLA. Oral mucosa is moist. Neck: Supple. No JVD. No carotid bruits. Chest: Decreased breath sounds on the right base. Clear to auscultation on the left. No expiratory wheezing. Heart: Regular rate and rhythm. Tachy. No gallop or murmur. Abdomen: Soft. No abnormal masses. Obese, slightly distended. Active bowel sounds. Extremities: No clubbing, or cyanosis, or edema. No calf tenderness. Neurologic: Grossly intact. Laboratory Data: Today, CBC was normal, except for hemoglobin 16.9, hematocrit 51.9. Chemistry with in normal, except for BUN 30, creatinine 1.16, GFR of 41, down from 56. Chest x-ray today showed lar ge right pleural effusion, looks slightly larger than yesterday. Assessment And Plan: 1.Acute on chronic systolic heart failure. Ejection fraction 17%. Continue Lasix. Beta lisa. The patient has stopped his Entresto. 2.Large right-sided pleural effusion, secondary to congestive heart failure. The patient is schedul ed to have a thoracentesis by IR on Sunday. The patient is on Lovenox. We will hold that 12 hours b efore procedure. 3.Coronary artery disease, stable. 4.Status post pacemaker. 5.Atrial fibrillation. Was on Eliquis, but we will hold that and place the patient on Lovenox, whic h is scheduled on Sunday. Also, his amiodarone and digoxin stopped due to its current side effects. 6.Pancreatic pseudocyst 4.1 cm, stable, but patient having abdominal fullness and distention. We wi ll consult GI to see if any further workup needs to be considered. 7.Acute kidney injury, getting worse, most likely secondary to Lasix, which we will reduce the dose today to 40 mg once a day. MT/MODL Voice ID: [id number] Report ID: [id number]
[2017-10-28 05:56] LABS: Absolute Lymphocytes (CBC) 2.3 K/uL (0.7-4.9); Absolute Monocytes 0.7 K/uL (0.1-1.3); Absolute Neutrophil 2.5 K/uL (1.8-8.0); Basophils % 0.5 % (0-1.3); Eosinophils % 0.3 % (0-4.4); Hematocrit 49.9 % (39.6-49.0); Lymphocytes % 40.9 % (15.3-44.8); MCH 30.1 pg (27.0-35.0); MCV 92.5 fL (80-100); MPV 10.3 fL (7.6-11.3); Monocytes % 12.9 % (3.3-12.3); RBC Red Blood Cell Count 5.39 M/uL (4.33-5.43)
[2017-10-28 06:04] LABS: Magnesium 2.2 mg/dL (1.8-2.5); Potassium 4.1 mEq/L (3.6-5.0)
[2017-10-28] MEDS: CARVEDILOL 25 MG TAB PO SCH ×2 (08:24→21:18)
[2017-10-28] MEDS: PANTOPRAZOLE 40MG TABLET PO SCH ×2 (08:25→16:18)
[2017-10-28] MEDS: FUROSEMIDE 40 MG/4 ML VIAL IV SCH (08:25)
[2017-10-28] MEDS: SPIRONOLACTONE 25 MG TABLET PO SCH (08:25)
[2017-10-28] MEDS: SIMETHICONE 125 MG TAB PO PRN ×2 (08:28→16:27)
--- NOTE | 2017-10-28 17:29 | PN ---
Subjective: Onesimo doing well today. He stated that the shortness of breath improved. No chest pa in. No abdominal pain. His even abdominal fullness is better. No nausea or vomiting. Review of Systems: Otherwise, negative. Physical Examination: Vital Signs: Blood pressure 107/83, respiratory rate 20, pulse 116 temperature 98.7. General: The patient is alert and oriented x3. Does not look in any distress. HEENT: Atraumatic, normocephalic. PERRLA. Oral mucosa is moist. Neck: Supple. No JVD. No carotid bruits. Chest: Clear to auscultation but decreased breath sounds on the right base and no expiratory wheezin g. Heart: Regular rate and rhythm. No gallop or murmur. Little bit tachy. Abdomen: Soft, nontender. No masses. No hepatosplenomegaly. Positive bowel sounds. Extremities: No clubbing, cyanosis, or edema. No calf tenderness. Neurologic: Grossly intact. Laboratory Data: Today showed CBC within normal. Hemoglobin 16.3. BMP within normal except for BUN of 33, creatinine of 1.67, magnesium 2.2. Assessment And Plan: 1.Acute on chronic systolic heart failure. EF of 17%. The patient on Lasix and beta lisa. The patient stopped his Entresto. 2.Atrial fibrillation, not rate controlled yet. The patient was on amiodarone and digoxin but it wa s apparently stopped due to side effects. But currently he is on Coreg 25 twice a day with heart rat e not controlled. If his heart rate continued to be above 100, I think he will benefit from cardiolo gy consult to adjust his medication. So, I will request a Cardiology see him tomorrow morning. 3.A large right-sided pleural effusion secondary to congestive heart failure. The patient scheduled to have thoracentesis by IR. Sunday. Lovenox will be held this evening in preparation for the procedure tomorrow. 4.Coronary artery disease, stable. Status post pacemaker. 5.Pancreatic pseudocyst 4.1 cm, stable. GI consult pending tomorrow morning to evaluate that given patient's abdominal fullness and distention. 6.Acute renal failure, stable. We decreased Lasix from 40 twice a day to 40 once a day yesterday. 7.No DVT prophylaxis, as the patient on fully anticoagulation. MT/MODL Voice ID: [id number] Report ID: [id number]
[2017-10-28] MEDS ORDERED: LIDOCAINE 1% MPF 5 ML VIAL IM ONE (18:00)
[2017-10-28] MEDS ORDERED: LIDOCAINE 1% MPF 2 ML AMPULE IM ONE (18:00)
[2017-10-29 06:56] LABS: Magnesium 2.2 mg/dL (1.8-2.5); Potassium 4.2 mEq/L (3.6-5.0)
--- NOTE | 2017-10-29 07:55 | P.OP ---
Date of Service: 10/29/17 (Right sided large volume thoracentesis) Findings and Operative Technique Patient is 72 years of age admitted with congestive heart failure significant right-sided pleural effusion as a reason for thoracentesis After obtaining informed consent from the patient using ultrasonic guidance the generous dose of topical lidocaine 1300 cc of straw-colored fluid was drained using a safety centesis catheter pleural fluid was sent off for routine chemistry cytology and Gram stain patient tolerated the procedure well was terminated been is started complaining of some discomfort on the right side a postoperative chest x-ray has been ordered
--- NOTE | 2017-10-29 08:29 | RAD REPORT ---
EXAM DESCRIPTION: US - Chest - 10/29/2017 7:45 am FINDINGS: Right chest sonography was performed to assist referring physician with placement of a mac st tube for thoracentesis treatment. Submitted ultrasound studies show a large right pleural effusion matching the recent chest film findi ngs.
[2017-10-29] MEDS: PANTOPRAZOLE 40MG TABLET PO SCH (08:45)
[2017-10-29] MEDS: CARVEDILOL 25 MG TAB PO SCH (09:00)
[2017-10-29] MEDS: SPIRONOLACTONE 25 MG TABLET PO SCH (09:00)
[2017-10-29] MEDS: FUROSEMIDE 40 MG/4 ML VIAL IV SCH (09:00)
[2017-10-29 09:17] LABS: Appearance CLEAR (CLEAR); Body Fluid Source PLEURAL; Color of fluid Yellow (COLORLESS)
[2017-10-29 09:28] LABS: Body Fluid WBC 283 /mm^3
[2017-10-29] MEDS ORDERED: NA CHLORIDE 0.9% 250 ML IV PRN (09:45)
--- NOTE | 2017-10-29 09:47 | EKG ---
Test Date: 2017-10-29 Test Time: 09:19:07 Communications Programmer: SZUIE MEASUREMENT RESULTS: Intervals: Rate: 114 NH: 124 QRSD: 160 QT: 380 QTc: 523 [place]: P: 117 NH: 124 QRS: -57 T: 129 INTERPRETIVE STATEMENTS: Atrial-sensed ventricular-paced rhythm tracking sinus tachycardia Compared to ECG 10/23/2017 22:52:34 no significant change from previous ECG Electronically Signed On 10-29-17 09:47:14 CDT by Ajit Price
--- NOTE | 2017-10-29 10:27 | RAD REPORT ---
EXAM DESCRIPTION: RAD - Chest Single View - 10/29/2017 10:09 am CLINICAL HISTORY: Status post thoracentesis. COMPARISON: 10/27/2017 FINDINGS: Portable technique limits examination quality. Moderate to significant reduction in the size of the right pleural effusion is noted. No postprocedur e pneumothorax seen. Small to moderate amount of pleural fluid on the right persists. The left lung i s grossly clear. The heart is moderately enlarged with multilead pacer/ defibrillator device seen. No displaced fractures. IMPRESSION: No postprocedure pneumothorax seen.
[2017-10-29 11:13] VITALS: BP 114/79; TEMP 97.3
--- NOTE | 2017-10-29 12:00 | P.DS ---
Admission Date: 10/24/17 Discharge Date: 10/29/17 Primary Care Provider: Leyda Webster NP Disposition: ROUTINE DISCHARGE Discharge Condition: GOOD Reason for Admission: Pleural effusion Consultations: Pulmonology-Dr. Sweet Cardiology-Dr. Ocampo Procedures: CT scan: IMPRESSION: Large right pleural effusion without loculation. This occupies 40- 50% of the right hemithorax. Complete right lower lobe atelectasis, near complete right middle lobe atelectasis and partial right upper lobe atelectasis. No underlying mass or infiltrate. Cardiomegaly without pericardial effusion. Post chest x-ray after thoracentesis: Significant improvement in pleural effusion. No pneumothorax noted. - Problems (1) GERD (gastroesophageal reflux disease) Current Visit: Yes Status: Chronic Qualifiers: Esophagitis presence: esophagitis presence not specified Qualified Code(s) : K21.9 - Gastro-esophageal reflux disease without esophagitis (2) Chronic anticoagulation Current Visit: Yes Status: Chronic (3) Acute on chronic systolic CHF (congestive heart failure) Onset Date: 10/24/17 Current Visit: Yes Status: Acute (4) CAD (coronary artery disease) Onset Date: 10/24/17 Current Visit: Yes Status: Chronic Qualifiers: Coronary Disease-Associated Artery/Lesion type: [place] artery [place] vs. transplanted heart: menominee heart Associated angina: without angina Qualified Code(s): I25.10 - Atherosclerotic heart disease of menominee coronary artery without angina pectoris (5) Pleural effusion Onset Date: 10/24/17 Current Visit: Yes Status: Acute (6) Renal insufficiency Current Visit: Yes Status: Acute (7) History of implantable cardiac defibrillator (ICD) Current Visit: Yes Status: Chronic (8) Cardiomyopathy Current Visit: Yes Status: Chronic Qualifiers: Cardiomyopathy type: unspecified Qualified Code(s): I42.9 - Cardiomyopathy , unspecified (9) Atrial fibrillation Current Visit: Yes Status: Chronic Qualifiers: Atrial fibrillation type: chronic Qualified Code(s): I48.2 - Chronic atrial fibrillation Brief History of Present Illness: 72-year-old male presented emergency room with increasing shortness of breath. Patient with history of CAD, cardiomyopathy, history defibrillator placement, and CHF with an ejection fraction of 17%. Patient recently hospitalized at [facility]. Patient found to have CHF exacerbation. Patient also found to have a large pleural effusion on the right side. Patient was admitted for treatment. Hospital Course: During the course of his stay patient had shortness of breath secondary to right pleural effusion. Patient evaluated by Cardiology and pulmonology. Thoracentesis was recommended. Thoracentesis was done. Patient tolerated procedure well. 1500 cc of fluid was removed. Recheck chest x-ray shows no pneumothorax. Significant reduction in the pleural effusion was noted. At discharge patient will continue with diuretic therapy including Lasix 40 mg 1 pill twice daily and Aldactone 25 mg daily. Patient will need to continue with a 1500 cc per day fluid restriction and low-salt diet. Recommendation is for the patient to follow up with pulmonology in 1-2 weeks to follow up this hospitalization and continue his care. Recommendation to recheck chest x-ray in 2-4 weeks to monitor resolution. Patient seen evaluated by Cardiology. Patient has underlying cardiomyopathy, CAD and item chronic systolic CHF. EF is about 17%. Patient will need to continue with his diuresis as stated above. Patient will need to continue with a fluid restriction as stated above. Recommendation is to monitor his daily weight. If his weight increases by more than 5 lb, then he is to contact his outreach clinician for further recommendation. Education on CHF will be provided. Patient has a history of defibrillator. This has been addressed by his outreach clinician recently. Patient has hypertension. Patient will continue with carvedilol 25 mg 1 pill twice daily. Recommendation is to maintain blood pressures less 150/80. Further adjustment can be done by his PCP. Patient may need to hold blood pressure medication if systolic is less than 120. Patient has GERD. Patient continue with Protonix 40 mg 1 pill twice daily Patient has atrial fibrillation on chronic anti coagulation therapy. He will continue with Eliquis 5 mg 1 pill twice daily. Patient will continue with his rate control medication carvedilol 25 mg 1 pill twice daily. Recommendation is for the patient follow up with cardiology in 1-2 weeks to follow up this hospitalization. Vital Signs/Physical Exam: Temp Pulse Resp BP Pulse Ox 97.3 F 116 H 16 114/79 98 10/29/17 11:12 10/29/17 11:12 10/29/17 11:12 10/29/17 11:12 10/29/17 11:12 General: Alert, In no apparent distress, Oriented x3, Cooperative HEENT: Atraumatic Neck: Supple Respiratory: Crackles/rales (Slight crackles to the right base. Improved aeration bilateral) Cardiovascular: Abnormal pulses (Slight tachycardia) Gastrointestinal: Normal bowel sounds, Soft and benign, Non-distended, No tenderness, No masses, No rebound, No guarding Musculoskeletal: No contractures, No erythema, No tenderness, No warmth Integumentary: No tenderness/swelling, No erythema, No warmth, No cyanosis Neurological: Normal speech, Normal strength at 5/5 x4 extr, Normal tone, Normal affect Laboratory Data at Discharge: WBC 5.5 K/uL (4.3-10.9) 10/28/17 05:18 Hgb 16.3 g/dL (13.6-17.9) 10/28/17 05:18 Hct 49.9 % (39.6-49.0) H 10/28/17 05:18 Plt Count 143 K/uL (152-406) L 10/28/17 05:18 Sodium 135 mEq/L (135-145) 10/29/17 06:25 Potassium 4.2 mEq/L (3.6-5.0) 10/29/17 06:25 BUN 37 mg/dL (6-20) H 10/29/17 06:25 Creatinine 1.82 mg/dL (0.61-1.24) H 10/29/17 06:25 Glucose 107 mg/dL (65-120) 10/29/17 06:25 Magnesium 2.2 mg/dL (1.8-2.5) 10/29/17 06:25 Total Bilirubin 3.6 mg/dL (0.3-1.2) H 10/23/17 23:59 AST 35 IU/L (10-42) 10/23/17 23:59 ALT 19 IU/L (10-60) 10/23/17 23:59 Alkaline Phosphatase 70 IU/L (42-121) 10/23/17 23:59 B-Natriuretic Peptide 777 pg/ml (<=100) H 10/23/17 23:59 Lipase 35 U/L (22-51) 10/23/17 23:59 Home Medications: Apixaban [Eliquis] 1 tab PO BID 10/24/17 Carvedilol 1 tab PO BID 10/24/17 Furosemide 1 tab PO BID 10/24/17 Potassium Chloride 20 meq PO BID 10/24/17 Pantoprazole [Protonix Tab*] 40 mg PO BIDAC #60 tab 10/29/17 Spironolactone [Aldactone*] 25 mg PO DAILY #30 tab 10/29/17 New Medications: Pantoprazole [Protonix Tab*] 40 mg PO BIDAC #60 tab Spironolactone [Aldactone*] 25 mg PO DAILY #30 tab Patient Discharge Instructions: 1. Patient will need a follow up with his PCP in 1 week to follow up this hospitalization. 2. Patient presented with shortness of breath and found to have a large right pleural effusion. Patient evaluated by Cardiology and pulmonology. Thoracentesis was recommended. Patient had thoracentesis and tolerated procedure well. 1500 cc of fluid removed. Post chest x-ray showed no pneumothorax. Improvement noted. At discharge patient will continue with diuretic therapy including Lasix 40 mg 1 pill twice daily and Aldactone 25 mg daily. Patient will need to continue with a 1500 cc per day fluid restriction and low-salt diet. Recommendation is to recheck lab-BMP since the patient will be on diuretic therapy. Further adjustment can be done by his PCP. Recommendation is for the patient to follow up with pulmonology in 1-2 weeks to follow up this hospitalization and continue his care. Recommendation to recheck chest x-ray in 2-4 weeks to monitor resolution. 3. Patient seen evaluated by Cardiology. Patient has underlying cardiomyopathy, CAD and item chronic systolic CHF. EF is about 17%. Patient will need to continue with his diuresis as stated above. Patient will need to continue with a fluid restriction as stated above. Recommendation is to monitor his daily weight. If his weight increases by more than 5 lb, then he is to contact his outreach clinician for further recommendation. Education on CHF will be provided. 4. Patient has a history of defibrillator. This has been addressed by his outreach clinician recently. 5. Patient has hypertension. Patient will continue with carvedilol 25 mg 1 pill twice daily. Recommendation is to maintain blood pressures less 150/80. Further adjustment can be done by his PCP. Patient may need to hold blood pressure medication if systolic is less than 120. 6. Patient has GERD. Patient continue with Protonix 40 mg 1 pill twice daily. 7. Patient has atrial fibrillation on chronic anti coagulation therapy. He will continue with Eliquis 5 mg 1 pill twice daily. Patient will continue with his rate control medication carvedilol 25 mg 1 pill twice daily. Recommendation is for the patient follow up with cardiology in 1-2 weeks to follow up this hospitalization. 8. Patient can resume his Eliquis tonight and remove the Band-Aid tomorrow. Patient may take a shower and resume normal activities. 9. Patient had mild renal insufficiency. This is likely from diuretic therapy. Recommendation is to recheck BMP in 1 week to monitor his progress. Further adjustment in his diuretic therapy may be needed in the future. This can be done by his PCP. 10. Patient will need to limit his activities due to his congestive heart failure. Diet: Low sodium Activity: Ad bethany Followup: Braxton Sweet MD [ACTIVE - CAN ADMIT] - 1-2 Weeks Time spent managing pt's care (in minutes): 55
[2017-10-29 12:02] VITALS: O2SAT 98
--- NOTE | 2017-10-29 12:11 | PN ---
I am asked to see him again. The notes say that he has AFib. I am looking through all of rhythm str ips, talking to the radio/tv technician, none of them show AFib. His rhythm is always sinus or sinu s tachycardia with pacing. The pacemaker he has is a biventricular pacing device. It senses atrial activity. Atrial activity triggers at the pace, so often his heart rate is over 100 and it has biven tricular pacing. For the most part, the QRS complex is fairly narrow with biventricular pacing. I a ctually do not see any AFib. I will keep my eyes open. We will do daily EKGs, but I think he is in sinus tachycardia. We could attempt to give him more beta-blockers, but he really tends to be hypote nsive with any kind of therapy. He would otherwise be a candidate for Entresto or other vasodilators , but he cannot even manage to tolerate those. I do not recommend starting an antiarrhythmic drug ba sed on what I can see. DOM/SUSHANT Voice ID: [id number] Report ID: [id number]
== END 2017-10-29 13:45 | disposition home or self-care (01) | DRG 292 ==
LOC: ER 21:01 → ERHOLD 10-24 02:12 → 4TH 10-24 02:21
PROVIDERS: ADMIT Internal Medicine; ATTEND Internal Medicine
PROC: 0W993ZX Drainage of Right Pleural Cavity, Percutaneous Approach, Diagnostic (ICD-10-PCS; principal; 2017-10-29)
DX: I11.0 Hypertensive heart disease with heart failure (principal); J91.8 Pleural effusion in other conditions classified elsewhere; K86.3 Pseudocyst of pancreas; I50.23 Acute on chronic systolic (congestive) heart failure; I48.2 Chronic atrial fibrillation; Z95.810 Presence of automatic (implantable) cardiac defibrillator; I42.9 Cardiomyopathy, unspecified; K21.9 Gastro-esophageal reflux disease without esophagitis; Z79.01 Long term (current) use of anticoagulants; I25.10 Atherosclerotic heart disease of native coronary artery without angina pectoris; N28.9 Disorder of kidney and ureter, unspecified; E66.9 Obesity, unspecified; Z68.31 Body mass index [BMI] 31.0-31.9, adult
CPT/HCPCS: 36415; 71045; 71250; 74176; 76604; 80048; 80076; 81003; 81015; 82805; 83690; 83735; 83880; 84484; 85025; 87070; 88108; 88305; 89050; 93005; 93306; 93971; 94760; 99285; J1650; J2001; J2405

== ENCOUNTER 2017-10-31 14:59 | Inpatient (IN) | payer OTHER ==
--- OUTSIDE RECORDS SUMMARY | 2017-10-31 15:01 | XMS REPORT | Clinical Summary ---
:1945 Author Organization [facility] Address [address] [place] [address] Care Team Providers Name Role Phone Asked, [...] tablet mouth 2 (two) times a day. amIODarone TK 1 T PO D 5 [...] tablet per (two) times a tablet day. aspirin (ECOTRIN) Take 1 tablet 30 tablet 0 09/25/2017 81 MG enteric (81 mg total) 8 coated tablet by mouth daily for 30 days. digOXIN (LANOXIN) Take 1 tablet 30 tablet 0 09/25/2017 125 mcg tablet (125 mcg total) 8 by mouth daily for 30 days. Active Problems Problem Noted Date Acute renal insufficiency 09/20/2017 CHF (congestive heart failure) 11/28/2015 Encounters Date Type Specialty Care Team Description 09/19/2017 - Hospital Encounter General Internal Petr, Acute renal insufficiency (Primary Dx); 09/24/2017 Medicine Tristin Miller, Congestive heart failure, unspecified congestive heart failure chronicity, unspecified congestive heart failure type; DO Tachycardia; Preston Snell, Hyperkalemia after 10/30/2016 Social History Tobacco Use Types Packs/Day Years [...] are in [employer] the results (37894) section. after 10/30/2016 Results POC glucose (09/24/2017 4:39 PM)Only the most recent of16 resultswithin the time period is included. Component Value Ref Range POC glucose 113 (H) 65 - 99 mg/dL Comment: [facility] Notified RN Meter ID: [id number] Burner Hand: Onesimo Don Specimen Performing Laboratory [facility] DEPARTMENT OF PATHOLOGY AND GENOMIC MEDICINE [address] [place] [address] Estimated GFR (09/24/2017 4:00 AM)Only the most [...] and Americans. Specimen Performing Laboratory Plasma specimen [facility] DEPARTMENT OF PATHOLOGY AND GENOMIC MEDICINE [address] [place] [address] Phosphorus level (09/24/2017 4:00 AM) Component Value Ref Range Phosphorus 3.5 2.4 - 4.5 mg/dL Specimen Performing Laboratory Plasma specimen [facility] DEPARTMENT OF PATHOLOGY AND GENOMIC MEDICINE [address] [place] [address] Magnesium level (09/24/2017 4:00 AM) Component Value Ref Range Magnesium 2.4 1.6 - 2.4 mg/dL Specimen Performing Laboratory Plasma specimen [facility] DEPARTMENT OF PATHOLOGY AND [facility] MEDICINE [address] [place] [address]204 Hepatic function panel (09/24/2017 4:00 AM) Component Value Ref Range Albumin 3.4 (L) 3.5 - 5.0 g/dL Total bilirubin 2.3 (H) 0.0 - 1.2 mg/dL Bilirubin direct 0.6 (H) 0.0 - 0.3 mg/dL Alkaline phosphatase 59 40 - 129 U/L Protein 6.8 6.3 - 8.3 g/dL Comment: [place] 4.6-7.0 g/dL 1 week 4.4-7.6 g/dL 7 months-1year5.1-7.3 g/dL 1-2 years5.6-7.5 g/dL >3 years6.0-8.0 g/dL 18-150 6.3-8.3 g/dL ALT 39 5 - 50 U/L AST 43 10 - 50 U/L Specimen Performing Laboratory Plasma specimen [facility] DEPARTMENT OF PATHOLOGY AND [facility] MEDICINE [address] [place] [address]99 Basic metabolic panel (09/24/2017 4:00 AM)Only the [...] 10.2 mg/dL Specimen Performing Laboratory Plasma specimen [facility] DEPARTMENT OF PATHOLOGY AND GENOMIC MEDICINE [address] [place] [address]290 XR Chest 2 Vw (09/23/2017 8:34 AM) Specimen Performing Laboratory [address] [address] Narrative EXAMINATION:XR CHEST 2 VW CLINICAL HISTORY:Congestive Heart Failure COMPARISON:September 20 IMPRESSION: Atelectasis or infiltrate in the right lower lobe right-sided pleural effusion Left lung is clear Heart is slightly enlarged Degenerative changes are present throughout the bony structures without evidence of a suspicious focal lesion. Diffuse calcified atherosclerotic vascular disease throughout the arterial structures. [facility]-[id number] Procedure Note Hm Interface, Radiology Results Incoming [...] atherosclerotic vascular disease throughout the arterial structures. [facility]-[id number] Echocardiogram complete w contrast and 3D if needed (09/21/2017 11:01 AM) Specimen Performing Laboratory [facility] [address] [place] [address] Narrative Echocardiography Report [address] [place] [address] Pat.Name:LINDEN CORBETT Pat.ID:[id number] .Date: 09/21/2017 Refer.MD:LUCAS DELGADO MD Exam Time: 10:01:00 AM Study Type:Routine Echo Height:66inWeight: 197lb BSA: 1.99 m2 DOBAge:1945,72Y Sex: MALEBP:112/65 Sonogrphr: Ced Cohen MD/MEREDITH ARVIZU, RDANDREI, ROMAN Pat. Stat.:Inpatient Room:[id number] Status:Final Echo Event ID:[id number] Order ID:[id number] Reason for Study:HF; re-eval therapy guidance History [...] RAPof 5 mmHg. MEASUREMENTS: 2D Parasternal [place] LVOT 2 cmLA Ds5.3 cm LVIDd6.9 cmIndex 3.5 cm/m Ao Rtd 2.9 cm Index1.5 cm/m LVIDs6.3 cm LV Khlq530.4 g(122-174) LV%fs8.8 % LVM Tlzvg654.8 g/m2 IVSd 0.7 cmRWT0.2 LVPWd0.8 cm LA Sng Plane LA Area 36.6 cm2(8.8-23.4) LA Vol 143 ml Index71.8 ml/m LA LngAx 8 cm RA Sng Plane RA Area 26.6 cm2(8.3-19.5) RA Vol 103.8 ml Index52.2 ml/m RA LngAx 5.8 cm Signed 09/21/2017 05:03 PM Kevin Wu M.D. Procedure Note Interface, Radiology Results In - 09/21/2017 5:04 PM CDT Echocardiography Report [id number] [place] [address] Pat.Name: LINDEN CORBETT Pat.ID: [id number] .Date: 09/21/2017 Refer.MD: LUCAS DELGADO MD Exam Time: 10:01:00 AM Study Type:Routine Echo Height: 66in Weight: 197lb BSA: 1.99 m2 Age: 3 1945,72Y Sex: MALE BP: 112/65 Sonogrphr: Ced Cohen MD/MARCOS BURTON [facility], [facility], [facility]ENTERReynaldo Pat. Stat.:Inpatient Room: [facility] Study Status:Final Echo Event ID:[id number] Order ID: [id number] Reason for Study:HF; re-eval therapy guidance History [...] of 5 mmHg. MEASUREMENTS: 2D Parasternal [place] LVOT 2 cm LA Ds 5.3 cm [...] Range Ventricular rate 116 Atrial rate 116 DE interval 112 QRSD interval 162 QT interval 380 QTC interval 528 P axis 1 88 QRS axis 1 -47 T wave axis 128 EKG impression Electronic ventricular pacemaker-In automated comparison with ECG of 19-SEP-2017 21:09,-Vent. rate has increased BY 10 BPM- Specimen Performing Laboratory [facility] MUSE [address] [place] [address] US Renal (09/20/2017 5:40 PM) Specimen Performing Laboratory [facility] [address] [place] [address] Narrative EXAMINATION:US RENAL CLINICAL HISTORY:Evaluate size and position of the kidneys COMPARISON:None. TECHNIQUE:Ultrasound evaluation of the kidneys and bladder. IMPRESSION: 1.The right kidney measures 11.2 x 4.9 x 4.3 cm.The left kidney measures 10.7 x 4.7 x 4.4 cm.There is bilateral increased renal cortical echogenicity compatible with renal parenchymal disease. 2.No hydronephrosis or solid mass lesions. 3.Mild bladder wall thickening cannot be excluded. [id number] Procedure Note Interface, Radiology Results Incoming - [...] Mild bladder wall thickening cannot be excluded. [facility]-[id number] Urine protein electrophoresis, random (09/20/2017 3:26 PM) [...] Roxy Davis MD Specimen Performing Laboratory Urine [facility] DEPARTMENT OF PATHOLOGY AND GENOMIC MEDICINE [address] [place] [address] Urinalysis, automated with microscopy (09/20/2017 3:26 PM) [...] UA None seen Specimen Performing Laboratory Urine [facility] DEPARTMENT OF PATHOLOGY AND GENOMIC MEDICINE [address] [place] [address] Sedimentation rate (09/20/2017 2:00 PM) Component Value Ref Range Sedimentation rate 4 0 - 10 mm/hr Specimen Performing Laboratory Blood [facility] DEPARTMENT OF PATHOLOGY AND [address] [address] [place] lambda free light chain with ratio (09/20/2017 1:50 PM) Component Value Ref Range [place] light chain 37.34 (H) 3.30 - 19.40 mg/L Lambda light chain 15.22 5.70 - 26.30 mg/L [place] lambda ratio 2.45 (H) 0.26 - 1.65 Specimen Performing Laboratory Plasma specimen [facility] DEPARTMENT OF PATHOLOGY AND [facility] MEDICINE [address] [place] [address] Serum electrophoresis (09/20/2017 1:50 PM) Component Value Ref Range Protein 6.6 6.3 - 8.3 g/dL Comment: [place] 4.6-7.0 g/dL 1 week 4.4-7.6 g/dL 7 [...] Roxy Davis MD Specimen Performing Laboratory Serum [facility] DEPARTMENT OF PATHOLOGY AND GENOMIC MEDICINE [address] [place] [address]46 Troponin (09/20/2017 3:13 AM)Only the most recent [...] myocardial injury. Specimen Performing Laboratory Plasma specimen [facility] DEPARTMENT OF PATHOLOGY AND GENOMIC MEDICINE [address] [place] [address] XR Chest 1 Vw Portable (09/20/2017 1:00 AM) Specimen Performing Laboratory [facility] [address] [place] [address] Narrative EXAMINATION: XR CHEST 1 VW PORTABLE CLINICAL HISTORY: Chest Pain, SHORTNESS OF BREATH COMPARISON:06/08/2015 chest x-ray. IMPRESSION: Patchy right basilar airspace disease could most likely represents atelectasis although pneumonia not entirely excluded. Small right pleural effusion.Left pleural space is normal. Enlarged cardiac silhouette similar to the prior study.Left chest cardiac device. No acute osseous abnormalities. [facility]-[id number] Procedure Note Interface, Radiology Results Incoming - [...] chest cardiac device. No acute osseous abnormalities. [facility]-[id number] ECG ED Preliminary Interpretation - NOT AN ORDER (09/20/2017 12:27 AM) Narrative Tristin Hammond DO 09/20/20172:43 AM ECG ED Preliminary Interpretation - Not an Order Performed by: TRISTIN HAMMOND Authorized by: TRISTIN HAMMOND ECG reviewed by ED Physician in the absence of a drug counselor: yes Previous ECG: Previous ECG:Unavailable Interpretation: Interpretation: [...] Anti-Xa 0.3-0.7 U/ml. Specimen Performing Laboratory Blood [facility] DEPARTMENT OF PATHOLOGY AND GENOMIC MEDICINE [address] [place] [address] Prothrombin time with INR (09/19/2017 9:46 PM) Component Value Ref Range Prothrombin time 35.8 (H) 12.0 - 15.0 sec INR 3.5 Comment: The International Normalized Ratio (INR) is a therapeutic monitoring tool for patients who are stable on oral anticoagulant therapy. An INR of 2.0-3.0 is suggested for deep vein thrombosis/pulmonary embolism. Specimen Performing Laboratory Blood [facility] DEPARTMENT OF PATHOLOGY AND GENOMIC MEDICINE [address] [place] [address]99 CBC with platelet and differential (09/19/2017 9:46 [...] (promyelocytes, myelocytes, metamyelocytes) Specimen Performing Laboratory Blood [facility] DEPARTMENT OF PATHOLOGY AND [facility] MEDICINE [address] [place] [address] B natriuretic peptide (09/19/2017 9:46 PM) Component Value Ref Range BNP 1,056 (H) 0 - 100 pg/mL Specimen Performing Laboratory Blood [facility] DEPARTMENT OF PATHOLOGY AND [facility] MEDICINE [address] [place] [address]78 Creatine kinase, total (CPK) (09/19/2017 9:46 PM) Component Value Ref Range Creatine kinase 65 39 - 308 U/L Specimen Performing Laboratory Plasma specimen [facility] DEPARTMENT OF PATHOLOGY AND [address] [address] Comprehensive metabolic panel (09/19/2017 9:46 PM) Component [...] 1.2 mg/dL Specimen Performing Laboratory Plasma specimen [facility] DEPARTMENT OF PATHOLOGY AND GENOMIC MEDICINE [address] [place] [address] after 10/30/2016 Insurance Payer Benefit Plan / Group Subscriber ID Type Phone Address MEDICARE MEDICARE PART A AND B xxxxxxxxxx Medicare [place], [place] MEDICAID MEDICAID xxxxxxxxx Medicaid [phone] [place] [id number]
[2017-10-31] MEDS ORDERED: NA CHLORIDE 0.9% 2,000 ML ONE (15:23)
[2017-10-31 15:52] LABS: Absolute Lymphocytes (CBC) 1.9 K/uL (0.7-4.9); Absolute Monocytes 0.7 K/uL (0.1-1.3); Absolute Neutrophil 4.6 K/uL (1.8-8.0); Basophils % 0.3 % (0-1.3); Eosinophils % 0.2 % (0-4.4); Hematocrit 56.1 % (39.6-49.0); Lymphocytes % 26.5 % (15.3-44.8); MCH 30.1 pg (27.0-35.0); MCV 93.2 fL (80-100); MPV 10.7 fL (7.6-11.3); Monocytes % 9.7 % (3.3-12.3); RBC Red Blood Cell Count 6.02 M/uL (4.33-5.43)
[2017-10-31 15:53] LABS: Albumin 3.4 g/dL (3.2-5.5); Bilirubin Direct 1.3 mg/dL (0-0.2); Bilirubin Total 3.8 mg/dL (0.3-1.2); Protein, Total 6.3 g/dL (6.0-8.3)
[2017-10-31] MEDS ORDERED: NA CHLORIDE 0.9% 250 ML ONE (17:06)
--- NOTE | 2017-10-31 17:54 | RAD REPORT ---
EXAM DESCRIPTION: CT - Abdomen Pelvis W Contrast - 10/31/2017 5:43 pm CLINICAL HISTORY: Abdominal pain. COMPARISON: October 24, 2017 TECHNIQUE: Computed axial tomography of the abdomen and pelvis was obtained. 100 cc Isovue-300 is ad ministered intravenously. Oral contrast was given. All CT scans are performed using dose optimization technique as appropriate and may include automated exposure control or mA/KV adjustment according to patient size. FINDINGS: Small to moderate right and small left pleural effusions are present. A 4.1 centimeter low-density mass within the region of the pancreatic body is unchanged. The pancreas is atrophic. The liver, spleen, adrenals and kidneys appear grossly normal. The prostate gland is markedly enlarged. There is no evidence of diverticulitis. The wall of the ascending colon appears mildly thickened A small amount of ascites is present IMPRESSION: Small to moderate right and small left pleural effusions 4.1 centimeter pancreatic pseudocyst unchanged from the prior exam Apparent mild thickening of the wall of the ascending colon may be secondary to a mild colitis or inc omplete distention
[2017-10-31] MEDS ORDERED: METRONIDAZOLE 500mg IVPB 500 MG/100 ML BAG IV ONE (18:35)
[2017-10-31] MEDS ORDERED: CEFTRIAXONE/SWI 1gm 1 GM/10 ML SYR ONE (18:35)
--- NOTE | 2017-10-31 18:43 | ER ---
Nurse's Notes [facility] Name: Onesimo Dorantes Age: 72 yrs Sex: Male : 1945 Arrival Date: 10/31/2017 Time: 15:07 Bed 2 Private MD: Diagnosis: Acute kidney failure, unspecified;Colitis;Dehydration Presentation: 10/31 15:11 Presenting complaint: EMS states: Pt discharged on Sunday, had a thoracentesis and jl7 drained 1 liter off. Family has not filled any of the medications. Pt is feeling weak and c/o abdominal pain. Transition of care: patient was not received from another setting of care. Onset of symptoms was October 31, 2017. Risk Assessment: Do you want to hurt yourself or someone else? Patient reports no desire to harm self or others. Initial Sepsis Screen: Does the patient meet any 2 criteria? No. Patient's initial sepsis screen is negative. Does the patient have a suspected source of infection? No. Patient's initial sepsis screen is negative. Care prior to arrival: IV initiated. 18 GA, in the right hand. Care prior to arrival: Medication(s) given: Normal saline infusion, 500 mL, IV initiated. 20 GA, in the left forearm. 15:11 Method Of Arrival: EMS: [facility] 15:11 Acuity: MICHAEL 2 jl7 Historical: - Allergies: 15:19 Amiodarone; jl7 - Home Meds: 15:19 carvedilol 25 mg Oral tab 1 tab 2 times per day [Active]; Eliquis 5 mg Oral tab 1 tab 2 jl7 times per day [Active]; furosemide 40 mg Oral tab 1 tab 2 times per day [Active]; potassium chloride 20 mEq Oral TbER 1 tab 2 times per day [Active]; - PMHx: 15:19 CHF; Hypertension; Myocardial infarction; jl7 - Immunization history:: Adult Immunizations unknown. - Social history:: Smoking status: Patient/guardian denies using tobacco. - Ebola Screening: : No symptoms or risks identified at this time. - Family history:: not pertinent. - Hospitalizations: : The patient was recently seen at [facility]. Screenin:00 Abuse screen: Denies threats or abuse. Denies injuries from another. Nutritional hb screening: No deficits noted. Tuberculosis screening: No symptoms or risk factors identified. Fall Risk Total Davila Fall Scale indicates High Risk Score (45 or more points). Fall prevention measures have been instituted. Side Rails Up X 2 Frequent Obs/Assessments Occuring As available patient and family educated on Fall Prevention Program and Strategies. Assessment: 15:30 General: Appears uncomfortable, Behavior is calm, cooperative, appropriate for age. jl7 Pain: Complains of pain in abdomen Pain currently is 7 out of 10 on a pain scale. Quality of pain is described as pressure. Neuro: Level of Consciousness is awake, alert, obeys commands, Oriented to person, place, time, situation. Cardiovascular: Heart tones S1 S2 present Patient's skin is warm and dry. Respiratory: Airway is patent Respiratory effort is even, unlabored, Respiratory pattern is regular, symmetrical, Breath sounds are clear bilaterally. GI: bruising noted to lower abdominal area Bowel sounds present X 4 quads. Abd is non tender Reports pressure in the abdomen. Derm: Skin is dry, Skin is pale, ashen Skin temperature is cool. 16:09 Reassessment: Potassium 6.0, provider notified of critical value. jl7 16:35 Reassessment: Dr. Arroyo notified of elevated lactate of 45.3. ss 17:30 Reassessment: Patient appears in no apparent distress at this time. Patient and/or hb family updated on plan of care and expected duration. Pain level reassessed. Patient is alert, oriented x 3, equal unlabored respirations, skin warm/dry/pink. Patient states symptoms have improved. 18:05 Reassessment: Patient appears in no apparent distress at this time. Patient and/or hb family updated on plan of care and expected duration. Pain level reassessed. Patient is alert, oriented x 3, equal unlabored respirations, skin warm/dry/pink. 18:51 Reassessment: Patient appears in no apparent distress at this time. No changes from hb previously documented assessment. Patient and/or family updated on plan of care and expected duration. Pain level reassessed. Patient is alert, oriented x 3, equal unlabored respirations, skin warm/dry/pink. 19:18 Reassessment: received patient from AM shift. patient is awake and able to move on bed. rv stable vital signs. not in distress at the moment. awaiting admission orders. 20:29 Reassessment: critical value noted. redrawn blood done for repeat BMP. report given to telemetry floor. awaiting result, sending patient up with echocardiography technologist. Vital Signs: 15:19 BP 82 / 65; Pulse 93; Resp 18; Temp 97.1; Pulse Ox 99% ; jl7 16:03 BP 86 / 70; Pulse 94; Resp 16; Pulse Ox 99% ; jl7 16:28 BP 89 / 67; Pulse 94; Resp 20; Pulse Ox 96% on R/A; hb 16:57 BP 102 / 84; Pulse 97; Resp 24; Pulse Ox 98% on R/A; hb 17:45 BP 100 / 80; Pulse 102; Resp 21; Pulse Ox 99% on R/A; hb 18:51 BP 103 / 85; Pulse 103; Resp 18; Pulse Ox 98% ; hb 19:19 BP 97 / 71; Pulse 103; Resp 15; Pulse Ox 98% on R/A; ED Course: 15:07 Patient arrived in ED. jl7 15:09 Hubert Arroyo MD is Attending Physician. rn 15:15 Triage completed. jl7 15:30 Patient has correct armband on for positive identification. Placed in gown. Bed in low hb position. Call light in reach. Side rails up X2. 15:30 Inserted saline lock: 20 gauge in left hand, using aseptic technique. Blood collected. jl7 15:30 First set of blood cultures drawn. jl7 15:45 Second set of blood cultures drawn. jl7 16:03 Arm band placed on right wrist. jl7 16:06 Maintain EMS IV. Dressing intact. Good blood return noted. Site clean \T\ dry. Gauge \T\ jl 7 site: 20 left FA and 18 right hand. 16:11 Lucia Welch, RN is Primary Nurse. jl7 17:43 CT Abd/Pelvis - W/Contrast In Process Unspecified. EDMS 17:[address] via stretcher. sj 17:44 CT completed. Patient tolerated procedure well. Patient moved back from CT. sj 18:42 Susy Pedro MD is Hospitalizing Provider. rn 19:11 Report given to ABHI Sinclair. jl7 20:31 No provider procedures requiring assistance completed. Inserted saline lock: Patient rv admitted, IV remains in place. Administered Medications: 15:20 Drug: NS 0.9% 500 ml Route: IV; Rate: bolus; Site: left antecubital; hb 16:20 Follow up: Response: No adverse reaction; IV Status: Completed infusion hb 17:00 Drug: NS 0.9% 250 ml Route: IV; Rate: bolus; Site: left hand; [facility] 17:30 Follow up: IV Status: Completed infusion 7 18:41 Drug: Rocephin - (cefTRIAXone) 1 grams Route: IVPB; Infused Over: 30 mins; Site: left jl7 hand; 18:45 Follow up: Response: No adverse reaction; IV Status: Completed infusion 7 18:45 Drug: Flagyl 500 mg Volume: 100 ml; Route: IVPB; Rate: 200 ml/hr; Infused Over: 30 jl7 mins; Site: left hand; 19:51 Follow up: IV Status: Completed infusion bp Outcome: 18:43 Decision to Hospitalize by Provider. rn 20:31 Admitted to Tele accompanied by tech, via wheelchair, room 416, with chart, Report rv called to olimpia 20:31 Condition: stable 20:31 Instructed on the need for admit. 20:33 Admitted to bp 20:33 Patient left the ED. rv Signatures: Dispatcher [employer] Amber Daniel Roman, MD MD rn Smirch, Shelby, RN RN ss Baxter, Heather, RN RN hb Leal, Jahala, RN RN jl7 Peltier, Brian, RN RN bp Torres Perdomo, RN RN rv Corrections: (The following items were deleted from the chart) 15:21 15:11 Acuity: MICHAEL 3 7 [facility]
--- NOTE | 2017-10-31 18:43 | EDPHYS ---
Physician Documentation [facility] Name: Onesimo Dorantes Age: 72 yrs Sex: Male : 1945 Arrival Date: 10/31/2017 Time: 15:07 Bed 2 Private MD: ED Physician Hubert Arroyo HPI: 10/31 15:56 This 72 yrs old Male presents to ER via EMS with complaints of Abdominal Pain. rn 15:56 The patient presents with abdominal pain that is diffuse. Onset: The symptoms/episode rn began/occurred "months". The symptoms do not radiate. Associated signs and symptoms: Pertinent positives: anorexia, constipation, Pertinent negatives: diarrhea, fever, testicular pain, vomiting. The symptoms are described as crampy. The symptoms are described as intermittent. Modifying factors: The symptoms are alleviated by nothing, the symptoms are aggravated by touching the area. Severity of pain: At its worst the pain was moderate in the emergency department the pain has improved. The patient has experienced similar episodes in the past, chronically. Reports months of diffuse abd pain, assoc with decreased appetite, admitted by me last week, had abd pain at that time as well, ct showed ascites, reports pain still present, a little worse today, no fever, + constipation. . Historical: - Allergies: 15:19 Amiodarone; jl7 - Home Meds: 15:19 carvedilol 25 mg Oral tab 1 tab 2 times per day [Active]; Eliquis 5 mg Oral tab 1 tab 2 jl7 times per day [Active]; furosemide 40 mg Oral tab 1 tab 2 times per day [Active]; potassium chloride 20 mEq Oral TbER 1 tab 2 times per day [Active]; - PMHx: 15:19 CHF; Hypertension; Myocardial infarction; jl7 - Immunization history:: Adult Immunizations unknown. - Social history:: Smoking status: Patient/guardian denies using tobacco. - Ebola Screening: : No symptoms or risks identified at this time. - Family history:: not pertinent. - Hospitalizations: : The patient was recently seen at [facility]. ROS: 15:56 Constitutional: Negative for fever, chills, and weight loss, Eyes: Negative for injury, rn pain, redness, and discharge, Neck: Negative for injury, pain, and swelling, Cardiovascular: Negative for chest pain, palpitations, and edema, Respiratory: Negative for cough, wheezing, and pleuritic chest pain, Abdomen/GI: Negative for vomiting, diarrhea MS/Extremity: Negative for injury and deformity, Skin: Negative for injury, rash, and discoloration, Neuro: Negative for headache, numbness, tingling, and seizure. Exam: 15:56 Constitutional: Frail appearing male, appears like doesn't feel well Head/Face: rn Normocephalic, atraumatic. Neck: Trachea midline, no thyromegaly or masses palpated, and no cervical lymphadenopathy. Supple, full range of motion without nuchal rigidity, or vertebral point tenderness. No Meningismus. Cardiovascular: Regular rate and rhythm with a normal S1 and S2. No gallops, murmurs, or rubs. Normal PMI, no JVD. No pulse deficits. Respiratory: Lungs have equal breath sounds bilaterally, clear to auscultation and percussion. No rales, rhonchi or wheezes noted. No increased work of breathing, no retractions or nasal flaring. Abdomen/GI: protruberant abdomen, + lower abd ecchymosis, + mild fluid wave, no peritoneal signs MS/ Extremity: Pulses equal, no cyanosis. Neurovascular intact. Full, normal range of motion. Equal circumference. Neuro: Awake and alert, GCS 15, oriented to person, place, time, and situation. Cranial nerves II-XII grossly intact. Motor strength 5/5 in all extremities. Sensory grossly intact. Vital Signs: 15:19 BP 82 / 65; Pulse 93; Resp 18; Temp 97.1; Pulse Ox 99% ; jl7 16:03 BP 86 / 70; Pulse 94; Resp 16; Pulse Ox 99% ; jl7 16:28 BP 89 / 67; Pulse 94; Resp 20; Pulse Ox 96% on R/A; hb 16:57 BP 102 / 84; Pulse 97; Resp 24; Pulse Ox 98% on R/A; hb 17:45 BP 100 / 80; Pulse 102; Resp 21; Pulse Ox 99% on R/A; hb 18:51 BP 103 / 85; Pulse 103; Resp 18; Pulse Ox 98% ; hb 19:19 BP 97 / 71; Pulse 103; Resp 15; Pulse Ox 98% on R/A; rv MDM: 15:09 Patient medically screened. rn 18:42 Differential diagnosis: bowel obstruction, diverticulitis, gastritis, non-specific abd rn pain, pancreatitis, colitis. Data reviewed: vital signs, nurses notes, lab test result(s), radiologic studies, CT scan, and as a result, I will admit patient. Counseling: I had a detailed discussion with the patient and/or guardian regarding: the historical points, exam findings, and any diagnostic results supporting the discharge/admit diagnosis, lab results, radiology results, the need for further work-up and treatment in the hospital. Response to treatment: the patient's symptoms have mildly improved after treatment. Admission orders: after a detailed discussion of the patient's condition and case, the admit orders are written by me. 10/31 15:17 Order name: Basic Metabolic Panel; Complete Time: 16:11 10/31 15:17 Order name: CBC with Diff; Complete Time: 16:11 10/31 15:17 Order name: Creatinine for Radiology; Complete Time: 16:11 10/31 15:17 Order name: Hepatic Function; Complete Time: 16:11 10/31 15:17 Order name: Lipase; Complete Time: 16:11 10/31 15:17 Order name: Urine Microscopic Only 10/31 15:18 Order name: CT Abd/Pelvis - W/Contrast; Complete Time: 18:14 10/31 15:22 Order name: Blood Culture Adult (2) 10/31 15:22 Order name: Procalcitonin; Complete Time: 17:03 10/31 15:22 Order name: Lactate; Complete Time: 17:03 10/31 18:42 Order name: Basic Metabolic Panel [facility] 10/31 19:41 Order name: Lactate Sepsis 2 HR Follow-up [facility] 10/31 20:10 Order name: BMP 10/31 15:17 Order name: IV Saline Lock; Complete Time: 17:02 10/31 15:17 Order name: Labs collected and sent; Complete Time: 17:02 rn Administered Medications: 15:20 Drug: NS 0.9% 500 ml Route: IV; Rate: bolus; Site: left antecubital; hb 16:20 Follow up: Response: No adverse reaction; IV Status: Completed infusion hb 17:00 Drug: NS 0.9% 250 ml Route: IV; Rate: bolus; Site: left hand; jl7 17:30 Follow up: IV Status: Completed infusion jl7 18:41 Drug: Rocephin - (cefTRIAXone) 1 grams Route: IVPB; Infused Over: 30 mins; Site: left jl7 hand; 18:45 Follow up: Response: No adverse reaction; IV Status: Completed infusion jl7 18:45 Drug: Flagyl 500 mg Volume: 100 ml; Route: IVPB; Rate: 200 ml/hr; Infused Over: 30 jl7 mins; Site: left hand; 19:51 Follow up: IV Status: Completed infusion bp Disposition: 10/31/17 18:43 Hospitalization ordered by Susy Pedro for Inpatient Admission. Preliminary diagnosis are Acute kidney failure, unspecified, Colitis, Dehydration. - Bed requested for Telemetry/MedSurg (Inpatient). - Status is Inpatient Admission. rv - Condition is Stable. - Problem is new. - Symptoms have improved. UTI on Admission? No Signatures: Dispatcher [employer] EDMS Jo-Ann Pedraza RN RN Hubert Arroyo MD MD rn Baxter, Heather, RN RN Lucia Welch RN RN [facility] Torres Perdomo RN RN rv Yahir Rodríguez RN bp Corrections: (The following items were deleted from the chart) 18:59 18:43 Hospitalization Ordered by Susy Pedro MD for Inpatient Admission. Preliminary diagnosis is Acute kidney failure, unspecified; Colitis; Dehydration. Bed requested for Telemetry/MedSurg (Inpatient). Status is Inpatient Admission. Condition is Stable. Problem is new. Symptoms have improved. UTI on Admission? No. rn 20:33 18:59 10/31/2017 18:43 Hospitalization Ordered by Susy Pedro MD for Inpatient rv Admission. Preliminary diagnosis is Acute kidney failure, unspecified; Colitis; Dehydration. Bed requested for Telemetry/MedSurg (Inpatient). Status is Inpatient Admission. Condition is Stable. Problem is new. Symptoms have improved. UTI on Admission? No. dw
[2017-10-31] MEDS ORDERED: MORPHINE 2 MG/ML SYR IV PRN (19:03)
[2017-10-31] MEDS ORDERED: ONDANSETRON 4 MG/2 ML VIAL IV PRN (19:03)
[2017-10-31] MEDS ORDERED: ACETAMINOPHEN 500 MG TAB PO PRN (19:03)
[2017-10-31] MEDS ORDERED: NA CHLORIDE 0.9% 1,000 ML IV SCH (20:00)
[2017-10-31] MEDS ORDERED: MORPHINE 4 MG/ML SYR IV PRN (20:00)
[2017-10-31 21:16] LABS: Potassium 5.7 mEq/L (3.6-5.0)
[2017-10-31 21:18] LABS: Potassium 2.1 mEq/L (3.6-5.0)
[2017-11-01 04:16] LABS: Absolute Lymphocytes (CBC) 1.3 K/uL (0.7-4.9); Absolute Monocytes 0.6 K/uL (0.1-1.3); Absolute Neutrophil 4.6 K/uL (1.8-8.0); Basophils % 0.1 % (0-1.3); Hematocrit 52.8 % (39.6-49.0); Lymphocytes % 19.4 % (15.3-44.8); MCH 30.3 pg (27.0-35.0); MCV 93.4 fL (80-100); MPV 10.7 fL (7.6-11.3); Monocytes % 9.7 % (3.3-12.3); RBC Red Blood Cell Count 5.65 M/uL (4.33-5.43)
[2017-11-01 04:28] LABS: Albumin 3.3 g/dL (3.2-5.5); Bilirubin Total 3.7 mg/dL (0.3-1.2); Potassium 4.6 mEq/L (3.6-5.0); Protein, Total 6.3 g/dL (6.0-8.3)
[2017-11-01] MEDS ORDERED: NA CHLORIDE 0.9% 1,000 ML IV SCH (06:00)
[2017-11-01] MEDS ORDERED: MORPHINE 4 MG/ML SYR IV PRN (07:22)
[2017-11-01] MEDS ORDERED: Morphine 2 MG/2 ML SYR IV PRN (07:23)
--- NOTE | 2017-11-01 07:53 | P.HP ---
Certification for Inpatient Patient admitted to: Inpatient With expected LOS: >2 Midnights Patient will require the following post-hospital care: None Practitioner: I am a practitioner with admitting privileges, knowledge of patient current condition, hospital course, and medical plan of care. Services: Services provided to patient in accordance with Admission requirements found in Title 42 Section 412.3 of the Code of Federal Regulations Patient History Date of Service: 10/31/17 History of Present Illness: Patient is a 72-year-old gentleman who came into the hospital with abdominal pain. Patient describes his abdominal pain as being generalized. This is been going on for a few months. He has had workup in the past it has been told he has colitis. The patient states that he has been on antibiotics before which is held. He came into the emergency room and was also recently diagnosed with a pleural effusion. He required thoracentesis. He says he has cardiomyopathy with any ejection fraction of 20-25%. He states that he has not been having any diarrhea, that it only started after he took Kayexalate in the ER. However , no new complaints. Patient does have acute renal insufficiency and will be gently hydrated as he has CHF as well. Patient be admitted to the hospital for further evaluation. Allergies amiodarone Allergy (Verified 11/01/17 01:15) Nausea/Vomiting Home Medications: Apixaban [Eliquis] 1 tab PO BID 10/24/17 Carvedilol 1 tab PO BID 10/24/17 Furosemide 1 tab PO BID 10/24/17 Potassium Chloride 20 meq PO DAILY 10/24/17 Pantoprazole [Protonix Tab*] 40 mg PO BIDAC #60 tab 10/29/17 Spironolactone [Aldactone*] 25 mg PO DAILY #30 tab 10/29/17 - Past Medical/Surgical History Has patient received pneumonia vaccine in the past: Yes Diabetic: No -: CHF -: HTN -: [place] -: Cardiac arrest -: CAD -: Cholecystectomy - Family History Mother Medical History: Heart disease Father Medical History: Heart disease - Social History Smoking Status: Never smoker Alcohol use: No CD- Drugs: No Caffeine use: No Place of Residence: Home Review of Systems 10-point ROS is otherwise unremarkable Physical Examination - Vital Signs Temperature: 97.1 F Blood Pressure: 113/83 Pulse: 115 Respirations: 14 Pulse Ox (%): 97 - Physical Exam General: Alert, In no apparent distress, Oriented x3 HEENT: Atraumatic, PERRLA, Mucous membr. moist/pink, EOMI, Sclerae nonicteric Neck: Supple, 2+ carotid pulse no bruit, No LAD, Without JVD or thyroid abnormality Respiratory: Clear to auscultation bilaterally, Normal air movement Cardiovascular: Regular rate/rhythm, Normal S1 S2, No murmurs Gastrointestinal: Normal bowel sounds, Soft and benign, Non-distended, No rebound, No guarding, Tenderness Musculoskeletal: No clubbing, No swelling, No tenderness Integumentary: No rashes Neurological: Normal speech, Normal tone, Sensation intact, Cranial nerves 3-12 intact, Normal affect, Abnormal strength Lymphatics: No axilla or inguinal lymphadenopathy - Studies Laboratory Data (last 24 hrs) 10/31/17 15:20: Creatinine 2.15 H 10/31/17 15:20: WBC 7.3 D, Hgb 18.2 H, Hct 56.1 H, Plt Count 130 L 10/31/17 15:20: Sodium 133 L, Potassium 6.0 H*, BUN 45 H, Creatinine 2.20 H, Glucose 91, Total Bilirubin 3.8 H, AST 101 H, ALT 74 H, Alkaline Phosphatase 59 , Lipase 49 Microbiology Data (last 24 hrs): 10/31/17 15:45 Blood - Blood Anaerobic Blood Culture - Final 10/31/17 15:30 Blood - Blood Anaerobic Blood Culture - Final Assessment & Plan - Problems (Diagnosis) (1) Acute on chronic systolic CHF (congestive heart failure) Onset Date: 10/24/17 Current Visit: No Status: Acute (2) Pleural effusion Onset Date: 10/24/17 Current Visit: No Status: Acute (3) Renal insufficiency Current Visit: No Status: Acute (4) Atrial fibrillation Current Visit: No Status: Chronic Qualifiers: Atrial fibrillation type: chronic Qualified Code(s): I48.2 - Chronic atrial fibrillation (5) CAD (coronary artery disease) Onset Date: 10/24/17 Current Visit: No Status: Chronic Qualifiers: Coronary Disease-Associated Artery/Lesion type: [place] artery [place] vs. transplanted heart: [place] heart Associated angina: without angina Qualified Code(s): I25.10 - Atherosclerotic heart disease of [place] coronary artery without angina pectoris (6) Cardiomyopathy Current Visit: No Status: Chronic Qualifiers: Cardiomyopathy type: unspecified Qualified Code(s): I42.9 - Cardiomyopathy , unspecified (7) History of implantable cardiac defibrillator (ICD) Current Visit: No Status: Chronic - Plan Plan: 1. Gentle hydration 2. Monitor renal function along with electrolytes closely 3. Renal Doppler if not done in the last 6 months 4. Stool studies 5. Monitor cardiac status closely 6. Telemetry 7. GI and DVT prophylaxis Discharge Plan: Home Plan to discharge in: Greater than 2 days - Advance Directives Does patient have a Living Will: No Does patient have a Durable POA for Healthcare: No - Code Status/Comfort Care Code Status Assessed: Yes Code Status: Full Code Critical Care: No Time Spent Managing PTS Care (In Minutes): 50
[2017-11-01] MEDS: CARVEDILOL 25 MG TAB PO SCH ×2 (08:54→21:00)
[2017-11-01] MEDS: APIXABAN 5 MG TABLET PO SCH ×2 (08:55→21:19)
[2017-11-01] MEDS: POTASSIUM CL SA 10 MEQ TAB PO SCH ×2 (08:55→09:00)
[2017-11-01 09:36] LABS: Urine Appearance TURBID; Urine Blood NEGATIVE (NEG); Urine Color DK YELLOW; Urine Glucose NEGATIVE (NEG); Urine Protein NEGATIVE (NEG); Urine pH 5.5 (5.0-7.0)
[2017-11-01 09:53] LABS: Urine Bilirubin 1+ (NEG)
[2017-11-01 10:05] LABS: Urine Bacteria <20 /HPF (NONE SEEN); Urine Culture Reflex Order REFLEXED; Urine Mucus 1+ /HPF (NONE SEEN); Urine RBC <5 /HPF (NONE SEEN)
[2017-11-01] MEDS: CIPROFLOXACIN 400mg IV 400 MG/200 ML BAG IV SCH ×2 (12:03→21:20)
[2017-11-01] MEDS ORDERED: NA CHLORIDE 0.9% 1,000 ML IV ONE (12:04)
--- NOTE | 2017-11-01 12:10 | P.PN ---
Subjective Date of Service: 11/01/17 Chief Complaint: abdominal pain He is feeling better, still some degree of abdominal pain but no nausea or vomiting, no fever either. Physical Examination - Vital Signs Temperature: 97.1 F Blood Pressure: 109/73 Pulse: 116 Respirations: 14 Pulse Ox (%): 97 - Physical Exam General: Alert, In no apparent distress HEENT: Atraumatic, PERRLA, EOMI Neck: Supple, JVD not distended Respiratory: Clear to auscultation bilaterally, Normal air movement Cardiovascular: Regular rate/rhythm, Normal S1 S2 Gastrointestinal: Normal bowel sounds, Tenderness (epigastric area) Musculoskeletal: No tenderness Integumentary: No rashes Neurological: Normal speech, Normal tone, Normal affect Lymphatics: No axilla or inguinal lymphadenopathy - Studies Laboratory Data (last 24 hrs) 10/31/17 15:20: Creatinine 2.15 H 10/31/17 15:20: WBC 7.3 D, Hgb 18.2 H, Hct 56.1 H, Plt Count 130 L 10/31/17 15:20: Sodium 133 L, Potassium 6.0 H*, BUN 45 H, Creatinine 2.20 H, Glucose 91, Total Bilirubin 3.8 H, AST 101 H, ALT 74 H, Alkaline Phosphatase 59 , Lipase 49 Microbiology Data (last 24 hrs): 10/31/17 15:45 Blood - Blood Anaerobic Blood Culture - Final 10/31/17 15:30 Blood - Blood Anaerobic Blood Culture - Final Medications List Reviewed: Yes Assessment And Plan - Current Problems (Diagnosis) (1) Colitis Current Visit: Yes Status: Acute (2) UTI (urinary tract infection) Current Visit: Yes Status: Acute Qualifiers: Urinary tract infection type: acute cystitis Hematuria presence: without hematuria Qualified Code(s): N30.00 - Acute cystitis without hematuria (3) Volume depletion Current Visit: Yes Status: Acute (4) Chronic systolic CHF (congestive heart failure) Current Visit: Yes Status: Acute (5) GERD (gastroesophageal reflux disease) Current Visit: No Status: Chronic Qualifiers: Esophagitis presence: esophagitis presence not specified Qualified Code(s) : K21.9 - Gastro-esophageal reflux disease without esophagitis - Plan #1 colitis: CT abd/pelivs remarkable for mild thickening of the wall of the ascending colon secondary to colitis. He had very abnormal chemistry panel, lactate, which improved after hydration. He is improving WBC remain within normal limits, no fever, nausea and vomiting improving. Continue empiric antibiotic treatment, IV fluids. #2 chronic systolic CHF: The patient seems to be volume depleted. Diuretics continue on hold. #3 volume depletion: Continue gently IV normal saline. #4 UTI: abnormal UA, urine culture in process. Continue empiric antibiotic treatment. - Code Status/Comfort Care Code Status Assessed: Yes Code Status: Full Code
[2017-11-01 17:08] LABS: Potassium 4.4 mEq/L (3.6-5.0)
[2017-11-01] MEDS: METRONIDAZOLE 500mg IVPB 500 MG/100 ML BAG IV SCH (17:27)
[2017-11-01] MEDS ORDERED: TRAMADOL HCL 50 MG TAB PO PRN (18:49)
[2017-11-02] MEDS: METRONIDAZOLE 500mg IVPB 500 MG/100 ML BAG IV SCH ×3 (00:59→17:25)
[2017-11-02 05:19] LABS: Magnesium 2.3 mg/dL (1.8-2.5); Potassium 4.6 mEq/L (3.6-5.0)
[2017-11-02] MEDS: PANTOPRAZOLE 40MG TABLET PO SCH (06:23)
[2017-11-02] MEDS ORDERED: NA CHLORIDE 0.9% 1,000 ML IV SCH ×2 (07:00→17:00)
[2017-11-02] MEDS: CIPROFLOXACIN 400mg IV 400 MG/200 ML BAG IV SCH ×2 (08:08→20:19)
[2017-11-02] MEDS: APIXABAN 5 MG TABLET PO SCH ×2 (08:09→21:07)
[2017-11-02] MEDS: CARVEDILOL 25 MG TAB PO SCH (09:00)
--- NOTE | 2017-11-02 10:00 | RAD REPORT ---
EXAM DESCRIPTION: VAS - Upper Lower Extrem Art Multi - 11/02/2017 9:32 am CLINICAL HISTORY: Leg pain. COMPARISON: None. TECHNIQUE: Bilateral lower extremity arterial Doppler examination was performed with waveform tracin g and ankle brachial pressure measurements. FINDINGS: Symmetric brachial pressure measurements are noted. Triphasic waveforms are seen in the proximal arterial vessels, however, the peak systolic velocities appear low-normal and the waveforms appear somewhat blunted. There is multifocal multisegmental ather omatous plaquing present bilaterally. The ankle vessels are non-compressible, and thus accurate ABIs were not obtainable. IMPRESSION: Triphasic waveforms are noted throughout both lower extremity arterial systems with mode rate multifocal multisegmental atheromatous vascular calcifications present. No vessel occlusion is s een. Amplitude of the waveforms is reduced relative to typical which suggests a component of inflow diseas e. Accurate ABIs could not be obtained due to non-compressibility of the ankle vessels.
[2017-11-02] MEDS ORDERED: DIGOXIN 0.25 MG/ML AMP IV ONE (11:37)
[2017-11-02] MEDS ORDERED: D50W 25 GM/50 ML SYRINGE IV ONE ×2 (11:44→16:46)
[2017-11-02 11:57] LABS: Arterial Blood Carboxyhemoglob 1.2 % (0-1.5); Blood Gas Oxyhemoglobin 95.1 % (94-97); Blood O2 Saturation 96.5 % (92-98.5)
[2017-11-02] MEDS ORDERED: PANTOPRAZOLE 40MG TABLET PO SCH (12:06)
[2017-11-02] MEDS ORDERED: D50W 25 GM/50 ML SYRINGE IV PRN (12:25)
[2017-11-02] MEDS ORDERED: D5 0.9 NS 1,000 ML IV SCH (13:00)
--- NOTE | 2017-11-02 13:26 | RAD REPORT ---
EXAM DESCRIPTION: RAD - Chest Single View - 11/02/2017 1:09 pm CLINICAL HISTORY: Volume overload, abnormal chest film COMPARISON: October 29 chest film, October 31 CT abdomen and pelvis TECHNIQUE: AP portable chest image was obtained 1252 hours . FINDINGS: Large right pleural effusion is present with right base atelectasis. This matches the appe arance on the October 31 CT study. Cardiomegaly is present similar to comparison. Defibrillator is in regine ce. Pulmonary vasculature within normal limits. No measurable left-sided pleural effusion. No pneumot horax. No gross bony abnormality seen. No acute aortic findings suspected. IMPRESSION: Large right pleural effusions similar to prior imaging. Stable cardiomegaly without vascular engorgement.
[2017-11-02 13:52] LABS: Albumin 3.5 g/dL (3.2-5.5); Protein, Total 6.5 g/dL (6.0-8.3)
[2017-11-02 14:03] LABS: Bilirubin Total 5.1 mg/dL (0.3-1.2); Potassium 6.2 mEq/L (3.6-5.0)
[2017-11-02 14:24] LABS: Absolute Monocytes 0.9 K/uL (0.1-1.3); Absolute Neutrophil 5.8 K/uL (1.8-8.0); Basophils % 1.3 % (0-1.3); Eosinophils % 0.1 % (0-4.4); Hematocrit 58.5 % (39.6-49.0); Lymphocytes % 13.4 % (15.3-44.8); MCH 29.9 pg (27.0-35.0); MCV 93.5 fL (80-100); RBC Red Blood Cell Count 6.26 M/uL (4.33-5.43)
--- NOTE | 2017-11-02 15:30 | RAD REPORT ---
EXAM DESCRIPTION: US - Renal Ultrasound-Complete - 11/02/2017 3:07 pm CLINICAL HISTORY: Renal failure COMPARISON: CT imaging October 31 FINDINGS: The right kidney measures 9.0 x 4.0 x 5.1 cm. The left kidney measures 9.1 x 4.6 x 5.7 cm . Renal cortical thickness and echogenicity are normal. No hydronephrosis or suspicious renal mass. IMPRESSION: No hydronephrosis or suspicious renal mass. No other significant findings.
[2017-11-02 15:36] LABS: UR CREAT 189.8 mg/dL (20-370)
--- NOTE | 2017-11-02 16:06 | P.PN ---
Subjective Date of Service: 11/02/17 Chief Complaint: abdominal pain He became less responsive, heasrt rate up 140s, tele shows v tach, EKG a fib RVR. He was fluid chellanged, with improvement of vitals and mentation. He was moved to ICU. Repeat Lab shows hyperkalemia and worsenong rneal function. Renal and cardiology were consulted . Physical Examination - Vital Signs Temperature: 97.2 F Blood Pressure: 98/72 Pulse: 109 Respirations: 18 Pulse Ox (%): 98 - Physical Exam General: Alert, Oriented x3 HEENT: Atraumatic, PERRLA, EOMI Neck: Supple, JVD not distended Respiratory: Clear to auscultation bilaterally, Normal air movement Cardiovascular: Regular rate/rhythm, Normal S1 S2 Gastrointestinal: Normal bowel sounds, No tenderness Musculoskeletal: No tenderness Integumentary: No rashes Neurological: Normal speech, Normal tone, Normal affect Lymphatics: No axilla or inguinal lymphadenopathy - Studies Microbiology Data (last 24 hrs): 10/31/17 15:45 Blood - Blood Anaerobic Blood Culture - Final 10/31/17 15:30 Blood - Blood Anaerobic Blood Culture - Final Medications List Reviewed: Yes Assessment And Plan - Current Problems (Diagnosis) (1) Atrial fibrillation Current Visit: No Status: Chronic Qualifiers: Atrial fibrillation type: chronic Qualified Code(s): I48.2 - Chronic atrial fibrillation (2) Dehydration Current Visit: Yes Status: Acute (3) Colitis Current Visit: Yes Status: Acute (4) FERNY (acute kidney injury) Current Visit: Yes Status: Acute (5) Acute on chronic systolic CHF (congestive heart failure) Onset Date: 10/24/17 Current Visit: No Status: Acute (6) Renal insufficiency Current Visit: No Status: Acute (7) CAD (coronary artery disease) Onset Date: 10/24/17 Current Visit: No Status: Chronic Qualifiers: Coronary Disease-Associated Artery/Lesion type: [place] artery [place] vs. transplanted heart: [place] heart Associated angina: without angina Qualified Code(s): I25.10 - Atherosclerotic heart disease of [place] coronary artery without angina pectoris (8) Cardiomyopathy Current Visit: No Status: Chronic Qualifiers: Cardiomyopathy type: unspecified Qualified Code(s): I42.9 - Cardiomyopathy , unspecified (9) History of implantable cardiac defibrillator (ICD) Current Visit: No Status: Chronic - Plan --Cont IVF --Cont IV ABX --Monitor electolytes --Renal and cardiology are on board
[2017-11-02 16:12] LABS: Albumin 3.3 g/dL (3.2-5.5); Magnesium 2.3 mg/dL (1.8-2.5); Protein, Total 6.4 g/dL (6.0-8.3)
[2017-11-02 16:15] LABS: Bilirubin Total 4.9 mg/dL (0.3-1.2)
[2017-11-02 16:20] LABS: Potassium 5.8 mEq/L (3.6-5.0)
[2017-11-02] MEDS ORDERED: DEXTROSE 10%-WATER 500 ML IV SCH (16:30)
[2017-11-02] MEDS ORDERED: ALBUTEROL 2.5 MG/3 ML NEB SOL NEB ONE (16:44)
[2017-11-02] MEDS ORDERED: INSULIN -REGULAR HUMAN 50 UNIT/0.5 ML ML IV ONE (16:48)
[2017-11-02] MEDS ORDERED: MORPHINE 4 MG/ML SYR IV PRN (16:55)
[2017-11-02] MEDS ORDERED: HYDROCORTISONE SUC 100 MG INJ IV SCH (17:00)
[2017-11-02] MEDS: D5W 1,000 ML with NA BICARB 8.4% 150 MEQ IV SCH ×2 (17:31)
[2017-11-02] MEDS ORDERED: CARVEDILOL 3.125 MG TAB PO SCH (21:00)
[2017-11-02] MEDS ORDERED: CARVEDILOL 25 MG TAB PO SCH (21:00)
--- NOTE | 2017-11-02 21:56 | RAD REPORT ---
EXAM DESCRIPTION: CT - Abdomen Pelvis Wo Contrast - 11/02/2017 8:56 pm CLINICAL HISTORY: Abdominal pain COMPARISON: October 31, 2017 and 2010 TECHNIQUE: Computed axial tomography of the abdomen and pelvis was obtained. IV and oral contrast we re not requested. All CT scans are performed using dose optimization technique as appropriate and may include automated exposure control or mA/KV adjustment according to patient size. FINDINGS: The evaluation of solid organs, vessels and bowel is limited secondary to the lack of con trast administration. A moderate right pleural effusion is mildly loculated. It has enlarged since the prior CT. Right basi lar atelectasis is suspected A 4.1 centimeter low-density mass within the region of the pancreatic body is unchanged presumably re presenting a pseudocyst. The pancreas is atrophic Prostate gland is markedly enlarged. The liver, spleen, adrenals kidneys appear grossly normal. Two soft tissue structures medial to the s pleen are unchanged and benign The appendix is normal. There is no evidence of diverticulitis. Colon wall thickness is now normal A small amount of ascites is without significant change IMPRESSION: Colonic wall thickness appears normal
--- NOTE | 2017-11-02 22:17 | CON ---
Date of Consultation: 11/02/2017 Additional Consulting Physician,: Dr. Perales. Reason For Consultation: Elevated BUN and creatinine, acidosis, hyperkalemia, electrolyte imbalance. History Of Present Illness: This is a pleasant 72-year-old gentleman with significant past medical h istory of congestive heart failure, with ejection fraction of 20-25%, the patient had coronary artery disease, has atrial fibrillation status post ICD. The patient came to the hospital, was admitted in October the with severe colitis and sepsis. On admission, his creatinine was elevated to 2.2 with low GFR down to 30. For that reason, we have been consulted. The patient was started on IV antibiot ic and n.p.o. The patient's hyperkalemia was treated, recovered. Yesterday, potassium was down to 4 .6. The patient had another episode of atrial fibrillation with VTach today with RVR and felt weak, bluish, for that reason we have been consulted. The patient was started on IV hydration, his blood p ressure started to maintain. According to the patient, the patient denied taking any nonsteroidal. No recent IV contrast. The patient was started on IV antibiotic, but his lactic acid been elevated. The patient was severely dehydrated, supportive with leukocytosis and severe contraction with elevat ion in the hemoglobin. Today, repeated lab showed elevation in the potassium 6.2, currently down to 5.8, severe acidosis wit h a pH 7.32 and bicarb only 20. Past Medical History: Include; 1.Hypertension. 2.Coronary artery disease, complicated with congestive heart failure. Ejection fraction of 25%, car diac arrhythmia with atrial fibrillation status post ICD. 3.History of cardiac arrest. Past Surgical History: Include cholecystectomy. Family History: Positive for hypertension and heart disease. Social History: Denies smoking, denies drinking, denies drug abuse. Home Medications: Include; 1.Eliquis. 2.Carvedilol b.i.d. 3.Lasix b.i.d. 4.KCl. 5.Pantoprazole. 6.Spironolactone 25. Allergies: AMIODARONE. Review of Systems: HEENT: No red eye. No ear pain. GI: Has abdominal pain. Has diarrhea. : No polyuria. No dysuria. No hematuria. CANE PILER: Not applicable. Respiratory: Orthopnea. Cardiovascular: Orthopnea, shortness of breath. Neuro: Generalized weakness. Musculoskeletal: No joint pain. Endocrine: No polydipsia. Skin: No rash. Physical Examination: Vital Signs: When I saw the patient, blood pressure of 98/72, pulse of 110 afebrile chest crackles f aint on the base. Heart: S1, S2. Regular. Systolic murmur, tachycardic. Abdomen: Soft, non tender, except on the lower quadrant. Bilateral extremity: Trace edema. Laboratory Data: Sodium 130, potassium 5.8, bicarb 20, BUN 53, creatinine 2.2 calcium 8.9, magnesium 2.3. AST starts to trending up 400, ALT 247, with normal alkaline phosphatase. Cortisol level with in normal limit 59. TSH not done, procalcitonin 0.36. ABG; pH 7.31 CO2 26, base access -11, saturat ion 96. Urinalysis nitrate positive. No hematuria, but this lab was done yesterday. Protein creati nine is 0.7. Medications: Current medications the patient on include ciprofloxacin 400 b.i.d. metronidazole 500 t .i.d. Digoxin, carvedilol, Tylenol, Zofran, pantoprazole, hydrocortisone, tramadol. Imaging: Chest x-ray showing cardiomegaly. Chest without significant congestion. Renal ultrasound showing 9 x 9.1, no hydronephrosis. CT abdomen and pelvis showing right small left pleural effusion. 4.1 cm pancreatic pseudocyst, colitis. Assessment And Plan: Acute kidney injury, normal-sized kidney, mostly secondary to prerenal, seconda ry to cardiorenal, and prerenal secondary to severe dehydration, secondary to GI loss, superimposed w ith COREEN inhibitor and diuresis use complicated with acidosis and hyperkalemia. 1.I am going to go ahead and start the patient on gentle bicarb drip to facilitate more potassium di uresis given the limitation of the fluid resuscitation, given the heart condition. 2.Given the possibility of atheroembolic with the presence of the cardiac arrhythmia, I am going to go ahead and send for LDH and complement with eosinophil and thromboembolic phenomena has been ruled out as alkaline phosphatase not supporting that. But atheroembolic still valid given the elevation i n the AST and ALT. 3.Septic shock with colitis. We are going to continue cautious fluid resuscitation given the heart condition. 4.Hyponatremia secondary to depletion, we will continue gentle hydration. 5.Hyperkalemia secondary to renal failure. Given the severe elevation in the lactic acid. Again, m esenteric and atheroembolic cannot be ruled out or excluded from the differential. I am going to sen d as above complement and use eosinophil we will start hydration and we will monitor the patient. 6.Acidosis secondary to lactic acidosis. We will start the patient on bicarb. 7.Hyperkalemia secondary to renal failure. Questionable mesenteric ischemia. We will treat symptom atically. We will avoid any Kayexalate in this condition giving the presence of the colitis. 8.Atrial fibrillation with cardiac arrhythmia, as by Cardiology. 9.Possible mesenteric ischemia supported with elevation in the AST, ALT, and hyperkalemia with sever e lactic acidosis. I am going to go ahead and send for CT abdomen and pelvis. I agree with current antibiotic cover. We will follow up with the primary. The patient's case discussed with Dr. Mckeon agreed on the plan. Discussed with the nurse by bedside. Discussed with the patient verbalized understanding. FABIAN Voice ID: [id number] Report ID: [id number]
[2017-11-03] MEDS: METRONIDAZOLE 500mg IVPB 500 MG/100 ML BAG IV SCH ×3 (01:08→17:06)
[2017-11-03] MEDS: PANTOPRAZOLE 40MG TABLET PO SCH (05:36)
[2017-11-03 06:57] LABS: Albumin 2.8 g/dL (3.2-5.5); Phosphorus 4.1 mg/dL (2.5-4.3); Potassium 4.2 mEq/L (3.6-5.0)
[2017-11-03 06:58] LABS: Thyroid Stimulating Hormone 7.55 uIU/mL (0.34-5.60)
--- NOTE | 2017-11-03 07:44 | P.PN ---
Subjective Date of Service: 11/03/17 Primary Care Provider: Leyda Webster NP; Cardiology-Dr. Dlegado Chief Complaint: abdominal pain Subjective: Improving (Patient doing better today. Still with slight fatigue but improved since yesterday.) Physical Examination - Vital Signs Temperature: 97.5 F Blood Pressure: 100/79 Pulse: 114 Respirations: 18 Pulse Ox (%): 96 - Physical Exam General: Alert, In no apparent distress, Oriented x3, Cooperative HEENT: Atraumatic Neck: Supple Respiratory: Normal air movement (To the left side.), Diminished (Slightly diminished to the right) Cardiovascular: Irregular heart rate/rhythm (Atrial fibrillation rate slightly elevated) Gastrointestinal: Normal bowel sounds, Soft and benign, Non-distended, No tenderness, No masses, No rebound, No guarding Musculoskeletal: No erythema, No tenderness, No warmth Integumentary: No tenderness/swelling, No erythema, No warmth, No cyanosis Neurological: Normal speech, Normal strength at 5/5 x4 extr, Normal tone, Normal affect - Studies Medications List Reviewed: Yes Assessment & Plan - Problems (Diagnosis) (1) Acidosis Current Visit: Yes Status: Acute Plan: Patient on bicarb drip. Case discussed with nephrology yesterday. Patient improved. Will monitor closely. Nephrology to adjust fluids. (2) Dehydration Current Visit: Yes Status: Acute Plan: Patient given IV fluid bolus yesterday. This is much improved. Patient appears better hydrated. Will slowly advance diet. Nephrology to adjust fluids. (3) FERNY (acute kidney injury) Current Visit: Yes Status: Acute Plan: Acute renal injury likely from dehydration related to colitis. Also related to cardiorenal disease. Nephrology consulted. Nephrology adjusting IV fluids. This has improved, will monitor closely. (4) Colitis Current Visit: Yes Status: Acute Plan: Colitis has improved, repeat CT scan unremarkable. Will advance diet as tolerated. Continue with IV antibiotic therapy. (5) GERD (gastroesophageal reflux disease) Current Visit: No Status: Chronic Plan: Continue with PPI. Qualifiers: Esophagitis presence: esophagitis presence not specified Qualified Code(s) : K21.9 - Gastro-esophageal reflux disease without esophagitis (6) Chronic anticoagulation Current Visit: No Status: Chronic Plan: Continue with Eliquis. (7) History of implantable cardiac defibrillator (ICD) Current Visit: No Status: Chronic Plan: Overall stable. (8) Atrial fibrillation Current Visit: No Status: Chronic Plan: Patient had atrial fibrillation with RVR and ventricular tachycardia yesterday. This has resolved with IV fluid hydration. Case discussed with cardiology. Rate appears stable. Will decrease carvedilol to 3.125 mg twice daily. Will hold if blood pressure systolic less than 120. Patient previously taking carvedilol 25 mg twice daily. Qualifiers: Atrial fibrillation type: chronic Qualified Code(s): I48.2 - Chronic atrial fibrillation (9) Acute on chronic systolic CHF (congestive heart failure) Onset Date: 10/24/17 Current Visit: No Status: Acute Plan: Ejection fraction around 20%. Will continue monitor closely. Will hold diuretic therapy due to dehydration and volume depletion. (10) CAD (coronary artery disease) Onset Date: 10/24/17 Current Visit: No Status: Chronic Plan: Overall stable. Will monitor closely Qualifiers: Coronary Disease-Associated Artery/Lesion type: [place] artery [place] vs. transplanted heart: [place] heart Associated angina: without angina Qualified Code(s): I25.10 - Atherosclerotic heart disease of [place] coronary artery without angina pectoris (11) Pleural effusion Onset Date: 10/24/17 Current Visit: No Status: Acute Plan: Large right pleural effusion noted. Continue with IV fluids due to dehydration. Discharge Plan: Home Plan to discharge in: Greater than 2 days Time Spent Managing Pts Care (In Minutes): 55
--- NOTE | 2017-11-03 07:58 | EKG ---
Test Date: 2017-11-02 Test Time: 11:12:58 Hospital Admitting Clerk: SUZIE MEASUREMENT RESULTS: Intervals: Rate: 151 CT: QRSD: 152 QT: 330 QTc: 523 [place]: P: CT: QRS: -77 T: 98 INTERPRETIVE STATEMENTS: Demand pacemaker, interpretation is based on intrinsic rhythm Atrial fibrillation with rapid ventricular response with premature ventricular or aberrantly conducted complexes Left axis deviation Nonspecific intraventricular block Inferior infarct, age undetermined Abnormal ECG Compared to ECG 10/29/2017 09:19:07 Ventricular premature complex(es) now present Left-axis deviation now present Myocardial infarct finding now present Atrial-sensed ventricular-paced complex(es) or rhythm no longer present Sinus tachycardia no longer present Electronically Signed On 11-03-17 07:55:10 CDT by Romero Ocampo
[2017-11-03] MEDS: CARVEDILOL 6.25 MG TAB PO SCH ×2 (08:33→20:26)
[2017-11-03] MEDS: CIPROFLOXACIN 400mg IV 400 MG/200 ML BAG IV SCH ×2 (08:33→20:25)
[2017-11-03] MEDS: D5W 1,000 ML with NA BICARB 8.4% 150 MEQ IV SCH ×2 (09:20)
[2017-11-03] MEDS: DEXTROSE 10%-WATER 500 ML IV SCH (10:18)
[2017-11-03] MEDS: SIMETHICONE 80 MG TAB PO PRN ×3 (10:19→17:05)
[2017-11-03] MEDS: APIXABAN 5 MG TABLET PO SCH ×2 (10:55→20:26)
--- NOTE | 2017-11-03 11:09 | CON ---
Additional Admitting Physician: Juan Pablo Perales MD Reason For Admission: Colitis. Reason For Consultation: Congestive heart failure and atrial fibrillation. History Of Present Illness: Mr. Dorantes is a 72-year-old [place] male whom we saw recently be cause of a large pleural effusion. He was actually discharged on 10/29/2017 after a thoracentesis by Dr. Sweet. He was able to drain 1300 cc. He had an ejection fraction in September of this year showin g a 17% ejection fraction with severe four-chamber dilatation. He is status post defibrillator and p acemaker. His chest x-ray at this time still showed a large pleural effusion, but the main reason he came in was the colitis. He was being treated with Flagyl and ciprofloxacin. There was a question of ventricular tachycardia and code, but reviewing the EKG, I think this was mostly a paced rhythm. Nevertheless, the patient had tachycardia with atrial fibrillation and was not having his carvedilol because of slight hypotension. He was getting IV fluids for dehydration and elevated creatinine and he was transferred to the ICU for further evaluation and treatment. The patient is asymptomatic from a chest pain standpoint, had decent oxygen saturation, heart rate in the 130s. Past Medical History: 1.Include chronic systolic congestive heart failure, status post ICD and pacemaker, ejection fractio n 17%. 2.Atrial fibrillation chronic on Eliquis and Coreg. 3.Hypertension history. 4.History of cardiac arrest in the past. 5.Status post CABG. 6.Status post cholecystectomy. Allergies: NONE. Review of Systems: Negative. Social History: Negative. Family History: Noncontributory. Medications: At home include Eliquis, Coreg, Lasix and potassium. Physical Examination: Vital Signs: Heart rate was 128, blood pressure was 110. O2 saturation was 96% on 2 L. HEENT: Negative. Neck: Supple with no bruit. Chest: Clear. Cardiac: Exam revealed a paced rhythm with an S3 gallops and S4 gallop as well as rapid ventricular response. Abdomen: Benign. Extremities: Revealed trace edema. Diagnostic Data: Showed elevated liver function enzymes. Chest x-ray showed large pleural effusion. EKG showed atrial fibrillation. Creatinine is 2.26. Impression And Plan: 1.Chronic systolic congestive heart failure that is stable. 2.Renal insufficiency that is improving. 3.Status post automatic implantable cardioverter-defibrillator and pacemaker. 4.Colitis. 5.Chronic atrial fibrillation, on Eliquis and Coreg. Plan: I think Mr. Dorantes needs to be very gently hydrated that would do probably 50 cc an hour for about 1 L. We need to be very careful with his ejection fraction as he may go into sudden acute pulm onary edema that may be detrimental to him. I would resume the Coreg at least 3.125 b.i.d. and incre ase it as tolerated and only hold it if his blood pressure less than 90. I would agree with holding the Lasix and potassium for now. I believe his liver function enzymes are probably secondary to passive congestion, although his colitis and antibiotics may be contributing as well. I will follow him along. MINGO/SUSHANT Voice ID: [id number] Report ID: [id number]
[2017-11-03] MEDS: LEVOTHYROXINE SOD 0.025 MG TAB PO SCH (12:17)
[2017-11-04] MEDS: METRONIDAZOLE 500mg IVPB 500 MG/100 ML BAG IV SCH ×3 (00:06→16:40)
--- NOTE | 2017-11-04 01:12 | PN ---
Date of Progress Note: 11/03/2017 Subjective: The patient was admitted with colitis, severe congestive heart failure, and acidosis. T he patient was treated with IV antibiotics and slightly stabilized. Physical Examination: Vital Signs: Blood pressure of 109/65, pulse of 88. Chest: Clear to auscultation. Heart: S1, S2. Regular. Abdomen: Soft, mild tenderness. No guarding or rebound. Extremities: No edema. Laboratory Data: WBC 7.8, H and H 18.7/58.5, platelet 126. Sodium 133, potassium 4.2, bicarb 23, BU N 51, creatinine 1.9, lactic acid 29, calcium 8.4, phosphor 4.1, albumin 2.8, TSH 7.5. Cortisol leve l of 59. Culture still negative. Current Medications: The patient on is include: 1.Ciprofloxacin. 2.Metronidazole. 3.Eliquis. 4.Carvedilol 6.25. 5.Digoxin. 6.Tylenol. 7.Pantoprazole. 8.Simethicone. 9.Levothyroxine. 10.Morphine. Assessment And Plan: 1.Acute kidney injury secondary to renal on the recovery mode, normal sized kidney, proteinuric, non nephrotic. I am going to continue hydration. Given the congestive heart failure, I am going to swit ch IV fluid to D10 and we will maintain the patient. 2.Hyperkalemia, resolved. 3.Hyponatremia, depletional. Continue hydration. 4.Acidosis secondary to lactic acid on the recovery phase. We will continue hydration. Continue an tibiotic. 5.Colitis, as by primary. 6.Atrial fibrillation with congestive heart failure. Agree with the carvedilol. Follow up with Ovidio benjamin. CHRISTY/SUSHANT Voice ID: [id number] Report ID: [id number]
[2017-11-04 04:59] LABS: Absolute Lymphocytes (CBC) 1.4 K/uL (0.7-4.9); Absolute Monocytes 0.8 K/uL (0.1-1.3); Absolute Neutrophil 4.9 K/uL (1.8-8.0); Basophils % 0.2 % (0-1.3); Eosinophils % 0.3 % (0-4.4); Hematocrit 52.5 % (39.6-49.0); Lymphocytes % 19.9 % (15.3-44.8); MCH 30.3 pg (27.0-35.0); MCV 91.4 fL (80-100); MPV 10.5 fL (7.6-11.3); Monocytes % 11.8 % (3.3-12.3); RBC Red Blood Cell Count 5.74 M/uL (4.33-5.43)
[2017-11-04] MEDS: DEXTROSE 10%-WATER 500 ML IV SCH (05:12)
[2017-11-04] MEDS: PANTOPRAZOLE 40MG TABLET PO SCH (05:17)
[2017-11-04] MEDS: LEVOTHYROXINE SOD 0.025 MG TAB PO SCH (05:17)
[2017-11-04 05:18] LABS: Albumin 2.9 g/dL (3.2-5.5); Magnesium 2.2 mg/dL (1.8-2.5); Potassium 4.4 mEq/L (3.6-5.0)
--- NOTE | 2017-11-04 07:32 | P.PN ---
Subjective Date of Service: 11/04/17 Primary Care Provider: Leyda Webster NP; Cardiology-Dr. Delgado Chief Complaint: abdominal pain Subjective: Improving (Patient is slowly improving. Still some increased belching. Patient only able to tolerate clear liquids at this time. No abdominal pain noted.) Physical Examination - Vital Signs Temperature: 97.1 F Blood Pressure: 101/83 Pulse: 114 Respirations: 21 Pulse Ox (%): 98 - Physical Exam General: Alert, In no apparent distress, Oriented x3, Cooperative HEENT: Atraumatic Neck: Supple Respiratory: Clear to auscultation bilaterally, Normal air movement Cardiovascular: Irregular heart rate/rhythm (Atrial fibrillation, rate slightly elevated) Gastrointestinal: Normal bowel sounds, Soft and benign, Non-distended, No tenderness, No masses, No rebound, No guarding Musculoskeletal: No erythema, No tenderness, No warmth Integumentary: No tenderness/swelling, No erythema, No warmth, No cyanosis Neurological: Normal speech, Normal strength at 5/5 x4 extr, Normal tone, Normal affect - Studies Medications List Reviewed: Yes Assessment & Plan - Problems (Diagnosis) (1) Acidosis Current Visit: Yes Status: Acute Plan: This has improved. Nephrology adjusted IV fluids yesterday. Overall stable. (2) Dehydration Current Visit: Yes Status: Acute Plan: Nephrology has adjusted IV fluids. This has improved. Patient appears better hydrated. Will advance diet slowly. Patient with increased bloating likely from 4.1 cm pseudocyst. Will ambulate. If stable will transfer the patient to the floor to increase ambulation. (3) FERNY (acute kidney injury) Current Visit: Yes Status: Acute Plan: This has significantly improved. Acute renal injury likely from multiple factors including dehydration, colitis and cardiorenal disease. Nephrology has adjusted IV fluids. Will ambulate patient. Anticipate transfer to the floor later today if improved. (4) Colitis Current Visit: Yes Status: Acute Plan: This has improved. No abdominal pain noted. Repeat CT scan the other day showed improvement. Patient has 4.1 cm pseudocyst. This is likely the cause of his difficulty eating. This will need to be further evaluated by GI as an outpatient. If this persists patient may require surgical intervention. (5) GERD (gastroesophageal reflux disease) Current Visit: No Status: Chronic Plan: Continue with PPI. Qualifiers: Esophagitis presence: esophagitis presence not specified Qualified Code(s) : K21.9 - Gastro-esophageal reflux disease without esophagitis (6) Chronic anticoagulation Current Visit: No Status: Chronic Plan: Continue with Eliquis. (7) History of implantable cardiac defibrillator (ICD) Current Visit: No Status: Chronic Plan: Overall stable. (8) Atrial fibrillation Current Visit: No Status: Chronic Plan: Atrial fibrillation with better rate control. Carvedilol increased to 6.25 mg 1 pill twice daily by Cardiology. Qualifiers: Atrial fibrillation type: chronic Qualified Code(s): I48.2 - Chronic atrial fibrillation (9) Acute on chronic systolic CHF (congestive heart failure) Onset Date: 10/24/17 Current Visit: No Status: Acute Plan: Ejection fraction around 20%. Will continue monitor closely. Will continue to hold diuretic therapy. Patient on IV fluids as per Nephrology. (10) CAD (coronary artery disease) Onset Date: 10/24/17 Current Visit: No Status: Chronic Plan: Overall stable. Will monitor closely Qualifiers: Coronary Disease-Associated Artery/Lesion type: [place] artery [place] vs. transplanted heart: [place] heart Associated angina: without angina Qualified Code(s): I25.10 - Atherosclerotic heart disease of [place] coronary artery without angina pectoris (11) Pleural effusion Onset Date: 10/24/17 Current Visit: No Status: Acute Plan: Large right pleural effusion noted. Continue with IV fluids due to dehydration. Will monitor closely. Will recheck chest x-ray today. (12) Pseudocyst of pancreas Current Visit: Yes Status: Acute Plan: 4.1 cm pseudocyst noted. This is likely causing difficulty with oral intake. Will monitor closely. Advance diet slowly. (13) Hypothyroidism Current Visit: Yes Status: Chronic Plan: Continue with his medication. Qualifiers: Hypothyroidism type: unspecified Qualified Code(s): E03.9 - Hypothyroidism , unspecified (14) Hyponatremia Current Visit: Yes Status: Acute Plan: IV fluids adjusted by Nephrology. Discharge Plan: Home Plan to discharge in: 48 Hours Time Spent Managing Pts Care (In Minutes): 55
[2017-11-04] MEDS: APIXABAN 5 MG TABLET PO SCH (08:24)
[2017-11-04] MEDS: CARVEDILOL 6.25 MG TAB PO SCH ×2 (08:24→21:03)
[2017-11-04] MEDS: CIPROFLOXACIN 400mg IV 400 MG/200 ML BAG IV SCH ×2 (08:25→21:03)
--- NOTE | 2017-11-04 10:54 | PN ---
Date of Progress Note: 11/04/2017 Subjective: The patient has still poor intake, feeling bloated. The patient was started on D10 yest erday. His blood sugar has been maintained okay. No shortness of breath. Physical Examination: Vital Signs: Blood pressure 113/86, pulse tachy of 110, afebrile. The patient had urine output of 6 55. Chest: Clear to auscultation. Heart: S1, S2. Regular. Abdomen: Soft. Mild tenderness in the epigastric area. No guarding or rebound. Laboratory Data: WBC 7.2, H and H 17.4/52.4, platelets 106. Sodium 130, potassium 4.4, bicarb 22, B UN 53, creatinine of 2, calcium 8.5, phosphorus 4, magnesium 2.2. Medications: Current medications the patient on its include ciprofloxacin 400 b.i.d., metronidazole 500 t.i.d., Eliquis, carvedilol 6.25 b.i.d., Tylenol, pantoprazole, simethicone, levothyroxine 0.25 d aily, D10 at 40 per hour, morphine, and tramadol. Assessment And Plan: 1.Acute kidney injury secondary to prerenal on chronic kidney disease secondary to cardiorenal, look ed to me still on the dry side, secondary to poor intake. I am going to go ahead and change IV fluid to D5 half and we will continue to monitor the patient. The patient will be cleared from the renal standpoint to transfer to the floor. 2.Hypertension, currently low blood pressure. Continue IV hydration. Continue carvedilol. I do no t see the need to resume any diuresis for the time being. 3.Hyponatremia secondary to depletion secondary to gastrointestinal loss. We will change IV fluid t o D5 half from D10 and we will follow up. 4.Congestive heart failure as above, euvolemic. Keep holding the Lasix. 5.Tachycardia, cardiac arrhythmia. Cardiology recommends carvedilol. We will follow up. 6.Colitis. Continue current antibiotics. CHRISTY/SUSHANT Voice ID: [id number] Report ID: [id number]
[2017-11-04] MEDS ORDERED: D5 0.45 NS 1,000 ML IV SCH ×2 (11:00→15:30)
[2017-11-04] MEDS ORDERED: METOCLOPRAMIDE 10 MG/2mL INJ IV PRN (15:48)
[2017-11-04] MEDS ORDERED: FUROSEMIDE 20 MG/ 2ML VIAL IV ONE (16:07)
--- NOTE | 2017-11-04 16:30 | RAD REPORT ---
EXAM DESCRIPTION: RAD - Abdomen 1 View (KUB) - 11/04/2017 4:14 pm CLINICAL HISTORY: Abdomen pain. FINDINGS: Only the abdomen is included in the field of view. The bowel gas pattern is unremarkable. No abnormal mass is seen
--- NOTE | 2017-11-04 16:32 | RAD REPORT ---
EXAM DESCRIPTION: Da Single View11/04/2017 4:14 pm CLINICAL HISTORY: sob COMPARISON: November 02, 2017 FINDINGS: Moderate right and small left pleural effusions are unchanged. Right basilar atelectasis i s present. The heart remains enlarged. Pacemaker leads are in place
[2017-11-04] MEDS ORDERED: NA CHLORIDE 0.9% IV SCH (17:00)
[2017-11-04] MEDS ORDERED: FUROSEMIDE IV SCH (17:00)
[2017-11-04 17:09] LABS: Arterial Blood Carboxyhemoglob 1.4 % (0-1.5); Blood Gas Oxyhemoglobin 96.8 % (94-97); Blood O2 Saturation 98.5 % (92-98.5)
[2017-11-04] MEDS: ENOXAPARIN 100 MG/ML SYR SQ SCH (17:40)
[2017-11-05] MEDS: METRONIDAZOLE 500mg IVPB 500 MG/100 ML BAG IV SCH (00:39)
[2017-11-05 05:08] VITALS: BMI 33.2
[2017-11-05] MEDS: PANTOPRAZOLE 40MG TABLET PO SCH (05:15)
[2017-11-05] MEDS: LEVOTHYROXINE SOD 0.025 MG TAB PO SCH (05:15)
[2017-11-05] MEDS: ENOXAPARIN 100 MG/ML SYR SQ SCH (05:15)
[2017-11-05 05:32] LABS: Absolute Lymphocytes (CBC) 1.3 K/uL (0.7-4.9); Absolute Monocytes 0.9 K/uL (0.1-1.3); Absolute Neutrophil 4.3 K/uL (1.8-8.0); Basophils % 0.3 % (0-1.3); Eosinophils % 0.7 % (0-4.4); Hematocrit 52.4 % (39.6-49.0); Lymphocytes % 20.2 % (15.3-44.8); MCH 30.3 pg (27.0-35.0); MCV 91.6 fL (80-100); RBC Red Blood Cell Count 5.72 M/uL (4.33-5.43)
[2017-11-05 05:51] LABS: Albumin 2.9 g/dL (3.2-5.5); Magnesium 2.3 mg/dL (1.8-2.5); Phosphorus 4.2 mg/dL (2.5-4.3); Potassium 4.4 mEq/L (3.6-5.0)
--- NOTE | 2017-11-05 08:46 | P.CNS ---
Date of Consult: 11/05/17 Reason for Consult: Pleural effusion Primary Care Provider: Leyda Webster NP; Cardiology-Dr. Delgado Chief Complaint: abdominal pain History of Present Illness: Patient is 72 years of age well known to me he was just recently discharged due and was admitted with a right-sided pleural effusion status post thoracentesis admitted again to the hospital complaining of shortness of breath abdominal distension and able to eat and drink denies any fever or diarrhea vomiting no chest pain transferred here to the ICU patient has terminal congestive heart failure with a paced rhythm feels fine now Allergies amiodarone Allergy (Verified 11/01/17 01:15) Nausea/Vomiting Home Medications: Apixaban [Eliquis] 1 tab PO BID 10/24/17 Carvedilol 1 tab PO BID 10/24/17 Furosemide 1 tab PO BID 10/24/17 Potassium Chloride 20 meq PO DAILY 10/24/17 Pantoprazole [Protonix Tab*] 40 mg PO BIDAC #60 tab 10/29/17 Spironolactone [Aldactone*] 25 mg PO DAILY #30 tab 10/29/17 - Past Medical/Surgical History Diabetic: No -: CHF -: HTN -: MO -: Cardiac arrest -: CAD -: Cholecystectomy - Family History Mother Medical History: Heart disease Father Medical History: Heart disease - Social History Smoking Status: Never smoker Alcohol use: No CD- Drugs: No Caffeine use: No Place of Residence: Home Review of Systems General: Weakness Respiratory: Shortness of Breath Gastrointestinal: Nausea, Distention Physical Examination Temp Pulse Resp BP Pulse Ox 97.2 F 110 H 22 H 97/87 97 11/05/17 04:00 11/05/17 06:00 11/05/17 06:00 11/05/17 06:00 11/05/17 06:00 General: Alert, Oriented x3 HEENT: Atraumatic Neck: Supple Respiratory: Diminished (Diminished on the) Cardiovascular: No edema, Regular rate/rhythm Gastrointestinal: Normal bowel sounds, Soft and benign - Problems (1) Pleural effusion Onset Date: 10/24/17 Current Visit: No Status: Acute Plan: Patient is 72 years of age with a history of terminal congestive heart failure dated with abdominal distension nausea shortness of breath he has a significant effusion on the right side status post thoracentesis on the last admission his saturation is satisfactory he is not in any distress room-air sats are fine Thoracenteses not indicated resume Eliquis for now trial Alexander
[2017-11-05] MEDS: APIXABAN 5 MG TABLET PO SCH ×2 (10:09→21:31)
[2017-11-05] MEDS: METOCLOPRAMIDE 10 MG/2mL INJ IV SCH ×2 (10:09→17:53)
[2017-11-05] MEDS: CARVEDILOL 6.25 MG TAB PO SCH ×2 (10:09→21:31)
--- NOTE | 2017-11-05 10:41 | PN ---
Date of Progress Note: 11/05/2017 Subjective: The patient is seen and examined. Chart reviewed and case discussed with RN. The patie nt is doing slightly better. Still in the ICU, not having much of an appetite. No further nausea or vomiting. Review of Systems: Negative except as above. Medications: Reviewed. Physical Examination: Vital Signs: Temperature 97.2, heart rate 110, blood pressure 97/87, respirations 22, O2 saturation 97% on room air. General: Awake, alert, oriented x3, in mild distress. Elderly male, ill-appearing, obese, BMI 33. CV: S1, S2. Peripheral pulses present. Respiratory: Diminished breath sounds at bases, right worse than the left. Gastrointestinal: Abdomen is soft, nontender, and nondistended. Positive bowel sounds. Extremities: No clubbing, cyanosis. Trace edema. Neurologic: Nonfocal. Laboratory Data: Sodium 131, potassium 4.4, chloride 101, CO2 22, BUN 33, creatinine 2.2, glucose 99 , calcium 8.6, phosphorus 4.2, magnesium 2.3, albumin 2.9. WBC 6.6, H and H 17.3 and 52.4, platelets 115, neutrophils 65%. Blood cultures, no growth to date. Assessment And Plan: 1.Acidosis, improving. IV fluids have been adjusted. 2.Acute dehydration. Gentle IV fluid hydration due to history of congestive heart failure with very low EF of 17%. 3.Pancreatic pseudocyst, 4.1 cm, stable. 4.Acute kidney injury. Creatinine trending up today. We will discuss with Nephrology. Need to inc rease with IV fluids. 5.Chronic anticoagulation. 6.Colitis. Repeat CT showed improvement. Still having some difficulty eating. May need EGD; [facility], we will discuss with Cardiology prior to procedure. 7.Gastroesophageal reflux disease. Continue PPI. 8.Chronic anticoagulation. Continue with Eliquis. 9.History of implantable cardiac defibrillator. 10.Atrial fibrillation. The patient on Coreg. 11.Acute on chronic systolic congestive heart failure, EF 17%. We will continue to monitor. Lasix on hold at this time due to acute kidney injury. 12.Coronary artery disease, [place] artery and [place] heart without angina, stable. 13.Pleural effusion. The patient may need a PleurX catheter placement versus repeat thoracentesis. Anticoagulation is being held. Currently on Lovenox. 14.Hypothyroidism. 15.Hyponatremia, improving. We will continue to monitor. 16.Code status. The patient wishes to change his code status to do not resuscitate. Primary nurse is in the room. The patient has discussed his wishes with the family as well. HARI Voice ID: [id number] Report ID: [id number]
[2017-11-05] MEDS: ENSURE CLEAR 200 ML CAN PO SCH (21:32)
[2017-11-06] MEDS: METOCLOPRAMIDE 10 MG/2mL INJ IV SCH ×2 (00:14→09:54)
--- NOTE | 2017-11-06 01:45 | PN ---
Date of Progress Note: 11/05/2017 Chief Complaint: Acute kidney injury on chronic kidney disease. History Of Present Illness: Acute kidney injury due to prerenal azotemia in the setting of chronic kidney disease stage 3 with cardiorenal syndrome. Review of Systems: Denies fever or chills. Physical Examination: Vital Signs: Blood pressure 113/86, heart rate 105. Lungs: Clear to auscultation bilaterally. Heart: S1, S2. Abdomen: Soft, benign. Extremities: Slight edema. Laboratory Data: Blood work; sodium 130, potassium 4.4, chloride is 105, CO2 of 22. BUN 53, creatinine 2, calcium 8.5, phosphorus 4.0, magnesium 2.2. Hemoglobin is 17.3, WBC 6.6, platelet count is 115. Sodium 131, potassium 4.4, chloride 101, CO2 of 22, BUN 53, creatinine 2.2, phosphorus 4.2, calcium 8.6, and magnesium 2.3. Impression And Plan: 1. Dfarx-fo-lqdtsng kidney injury. Renal function is stabilizing, plateauing. There is hyponatremia present of mild degree, stable. Continue to monitor electrolytes. The patient has cardiorenal syndrome. Hyponatremia may be due to the cardiorenal syndrome as well as depletion secondary to gastrointestinal loss. The patient currently is euvolemic. The patient will need Lasix for volemia control for cardiorenal syndrome. Plan is to avoid HCTZ due to the fact the patient has hyponatremia. 2. Colitis. The patient is on antibiotics. 3. Hypertension. Adjust blood pressure medication to prevent prerenal azotemia. NENA/SUSHANT Voice ID: [id number] Report ID: [id number] MARKEL
[2017-11-06 05:00] LABS: Absolute Lymphocytes (CBC) 1.5 K/uL (0.7-4.9); Absolute Neutrophil 4.2 K/uL (1.8-8.0); Basophils % 0.4 % (0-1.3); Eosinophils % 0.7 % (0-4.4); Hematocrit 55.5 % (39.6-49.0); Lymphocytes % 22.1 % (15.3-44.8); MCV 93.8 fL (80-100); MPV 11.1 fL (7.6-11.3); Monocytes % 14.2 % (3.3-12.3); RBC Red Blood Cell Count 5.92 M/uL (4.33-5.43)
[2017-11-06 05:01] LABS: Magnesium 2.4 mg/dL (1.8-2.5); Potassium 4.9 mEq/L (3.6-5.0)
--- NOTE | 2017-11-06 05:30 | PN ---
Date of Progress Note: 11/04/2017 Mr. Dorantes admitted and followed intermittently by me because of rapid atrial fibrillation. He is h ere for colitis. I increase his carvedilol to 6.25 mg b.i.d. because he was still slightly tachycard ic with a normal blood pressure. He is fairly asymptomatic from a cardiovascular standpoint. He has an ejection fraction of 17% with a defibrillator. He is not a candidate for Entresto because of luz elena al insufficiency which is improving. He tolerated his Coreg dose of 6.25 mg b.i.d. for now. He norm ally takes 25 mg twice a day. We will be very careful with IV hydration with him. I will sign off h is case for now. Continue his present regimen otherwise. MNIGO/SUSHANT Voice ID: [id number] Report ID: [id number]
[2017-11-06] MEDS: PANTOPRAZOLE 40MG TABLET PO SCH (05:54)
[2017-11-06] MEDS: LEVOTHYROXINE SOD 0.025 MG TAB PO SCH (05:54)
[2017-11-06 07:58] VITALS: O2SAT 95
--- NOTE | 2017-11-06 08:26 | P.PN ---
Subjective Date of Service: 11/06/17 Primary Care Provider: Leyda Webster NP; Cardiology-Dr. Delgado Chief Complaint: Congestive heart failure Subjective: Improving (Patient is improving doing better tolerating and shore) Review of Systems General: Weakness Respiratory: Shortness of Breath Physical Examination - Vital Signs Temperature: 97.8 F Blood Pressure: 102/64 Pulse: 109 Respirations: 17 Pulse Ox (%): 96 - Physical Exam General: Alert, Oriented x3 Neck: Supple Respiratory: Diminished (Diminished air entry on the right side) Cardiovascular: Edema (Minimal edema) - Studies Microbiology Data (last 24 hrs): 10/31/17 15:45 Blood - Blood Aerobic Blood Culture - Final No growth in 5 days. 10/31/17 15:45 Blood - Blood Anaerobic Blood Culture - Final 10/31/17 15:30 Blood - Blood Aerobic Blood Culture - Final No growth in 5 days. 10/31/17 15:30 Blood - Blood Anaerobic Blood Culture - Final Medications List Reviewed: Yes Assessment & Plan - Problems (Diagnosis) (1) Pleural effusion Onset Date: 10/24/17 Current Visit: No Status: Acute Plan: Patient is pleural effusion secondary to congestive heart failure continue with present therapy is creatinine is worse [place] potassium and spironolactone continue with Lasix thoracentesis not indicated room-air oxygenation is satisfactory continue with low-dose regular an
[2017-11-06] MEDS: APIXABAN 5 MG TABLET PO SCH (09:53)
[2017-11-06] MEDS: CARVEDILOL 6.25 MG TAB PO SCH (09:54)
[2017-11-06] MEDS: ENSURE CLEAR 200 ML CAN PO SCH (10:02)
[2017-11-06 11:39] VITALS: BP 100/73; TEMP 97
--- NOTE | 2017-11-07 02:00 | PN ---
Date of Progress Note: 11/06/2017 Subjective: The patient more awake today, back to his baseline with shortness of breath. Physical Examination: Vital Signs: Blood pressure 100/73, pulse of 84. Chest: Clear to auscultation. Heart: S1, S2. Regular. Abdomen: Soft, nontender. Extremities: Plus edema. Laboratory Data: H and H are 17.8/55.5. Sodium 131, potassium 4.9, bicarb 25. BUN 60, creatinine 2 .7, calcium 8.7, phosphor 5, magnesium 2.4, albumin of 3, protein creatinine is 0.7. Complement C3 a nd C4 is low. Assessment And Plan: 1.Acute kidney injury secondary to prerenal, recovered, resolved. 2.Urinary tract infection. Continue current treatment. 3.Hypertension, controlled, optimal. Continue current treatment. 4.Arthritis. We will send for arthritis workup, especially with the depletion on the robotic. We n eed to send full workup as outpatient to rule out any autoimmune disease. FABIAN Voice ID: [id number] Report ID: [id number]
--- NOTE | 2017-11-07 06:03 | DS ---
Date of Discharge: 11/06/2017 Consultants: Dr. Sweet with Pulmonology, Dr. Ocampo with Cardiology, and Dr. Mack with Nephr ology. Admitting Diagnoses: 1.Acute on chronic systolic congestive heart failure. 2.Pleural effusion. 3.Renal insufficiency. 4.Atrial fibrillation, chronic. 5.Coronary artery disease. 6.Cardiomyopathy. 7.History of implantable cardiac defibrillator. Discharge Diagnoses: 1.Acute on chronic systolic heart failure. 2.Acidosis. 3.Acute dehydration. 4.Pancreatic pseudocyst. 5.Acute kidney injury. 6.Chronic anticoagulation. 7.Colitis, resolved. 8.Gastroesophageal reflux disease. 9.Chronic atrial fibrillation. 10.History of implantable cardiac defibrillator. 11.Coronary artery disease of [place] artery and [place] heart without angina. 12.Pleural effusion. 13.Hypothyroidism. 14.Hyponatremia. Hospital Course: The patient is a 72-year-old male, who was recently discharged from the hospital an d comes back again with shortness of breath. The patient also had some abdominal pain. The patient was found to have acute on chronic systolic CHF exacerbation, was started on some diuresis. The pleu ral effusion was evaluated by Pulmonology and the patient was not recommended to have repeat thoracen tesis. The patient did have some acute kidney injury and Nephrology was involved. The patient did i mprove with some IV fluid hydration. Kidney function remained around baseline. The patient's white count remained stable, did have some thrombocytopenia. Blood cultures, C difficile, stool cultures, and fecal leukocytes were overall negative. Urine culture was negative as well. The patient is doin g well. His medications were adjusted. His Coreg dose was decreased to 6.25 b.i.d. The patient did have some abdominal pain. Repeat CT scan was done, which showed improvement in the colitis, which w as resolved. He was able to tolerate a diet after being started on Reglan. GI, Dr. Wheeler, was also consulted, however, was not seen. The patient otherwise did well, was able to tolerate his diet, an d was then cleared for discharge from software developer consultant's standpoint. The patient was then discharged back home in a fair condition. Activity: Fall precautions. Diet: Low-sodium, fluid-restricted diet. Followup: Follow up with primary care physician in 2 to 3 days. Follow up with cone cleaner, Dr. John flores, in 2 weeks. Follow up with client advocate, Dr. Mack, in 2 weeks. We will repeat CBC and CM P and follow up with road engineer freight, Dr. Sweet, in 2 weeks. We will repeat chest x-ray and monitor ing of pleural effusion. Return to ER for worsening condition. Medications: As per medication reconciliation list. Total time spent discharging the patient was 41 minutes. Physical Examination: General: Awake, alert, and oriented x3. No acute distress. CV: S1, S2. Peripheral pulses present. Respiratory: Moving air well and diminished breath sounds on the right base. GI: Abdomen is soft, nontender, and nondistended. Positive bowel sounds. Extremities: No clubbing or cyanosis. Trace pedal edema. Neurologic: Nonfocal. SA/MODL Voice ID: [id number] Report ID: [id number]
--- NOTE | 2017-11-21 23:09 | CON ---
Date of Consultation: 11/05/2017 Reason For Consultation: Persistent nausea and midepigastric pain with diarrhea. History Of Present Illness: The patient is a 72-year-old male who has a history of congestive heart failure, ejection fraction of 20 to 25%, coronary artery disease, atrial fibrillation with AICD in pl [place]. The patient came to the hospital with multiple medical problems including acidosis, hyperkalemi a, electrolyte imbalance with colitis, sepsis, genitourinary infection, worsening congestive heart fa ilure, dehydration, and possible septic shock, hyponatremia, hyperkalemia, atrial fibrillation. The patient admitted to the hospital. Continues to have some nausea. He has multiple comorbidities and actually including a pancreatic pseudocyst as well. Past Medical History: 1.Significant for hypertension, coronary artery disease. 2.Congestive heart failure. Ejection fraction 20-25%. 3.Cardiac arrhythmia with atrial fibrillation, status post ICD, and history of cardiac arrest and my ocardial infarction. Past Surgical History: Cholecystectomy. Family History: Positive for hypertension and heart disease. Social History: Negative for tobacco, alcohol, or drug use. Home Medications: Include Eliquis, carvedilol, Lasix, potassium, Protonix, and Aldactone. Allergies: AMIODARONE. Review of Systems: Patient has shortness of breath, orthostasis, orthopnea, lower extremity edema, shortness of breath, possible chest pain, mild confusion, delirium, possible sepsis and severe dehydration noted on admiss ion with leukocytosis, sepsis. Contraction alkalosis possibly. Hyponatremia, hyperkalemia, midepiga stric pain, diarrhea. Daughter says after CT scan p.o. contrast, but also CT revealed colitis. The daughter says diarrhea has improved since hospitalization. Continues to have some nausea, decrease i n his p.o. intake she states. Physical Examination: Vital Signs: The patient is afebrile. Temperature 97 degrees Fahrenheit, pulse 100, temp 98, respir ations 16, blood pressure 101/77, next 95/67, O2 saturation 96%. HEENT: Normocephalic and atraumatic. Anicteric. Pupils equal, round, and reactive to light. Extra ocular movements are clear. Neck: Supple. No masses. Respirations: Labored breathing. Diminished breath sounds in the bases of the lungs. Cardiac: Regular rate and rhythm. No gallop or rubs. Slightly tachycardic. Abdomen: Positive bowel sounds. Soft. Mild tympany. No peritoneal or Scanlon sign. No rebound. Extremities: No clubbing or cyanosis. Mild edema. Neuro: Alert and oriented x2, somewhat mildly confused, somewhat quiet. Family members speaking for the patient. Laboratory Data: The patient has a white count of 6.6, hemoglobin 17.3, hematocrit of 54.4, MCV of 9 2, platelet count 115, polys of 66%, lymphocytes 20%, monocytes 13%. The ABGs were 7.4, pCO2 of 30, pO2 of 123, bicarb 18, oxyhemoglobin of 87, inspired O2 28%. Sodium 131, potassium 4.4, chloride 101 , bicarb 22, BUN of 33, creatinine of 2.2, glucose 99, calcium 8.6, phosphorus 4.2, magnesium 2.3, al bumin 2.9, calcium on the was 8.5, phosphorus 4.0, magnesium 2.2. UA is positive for nitrite, 1 + bilirubin, 2+ 5-10 hyaline casts. There was mucus, 20 bacteria, less than [address] of the pelvis revealed colonic wall thickness, appears normal on the . On the , on the CT it appeared that [id number] right and left pleural effusion with a 4.1 cm pancreatic ps eudocyst, unchanged to prior exam. Apparent thickening below the ascending colon is secondary to mil d colitis or incomplete distention. Impression: 1.Nausea with decreased p.o. intake, probably multifactorial, possible colitis. The CT scan seems t o be resolved from the genitourinary infections, congestive heart failure has worsened, hy ponatremia due to severe dehydration, sepsis, decreased energy, pancreatic pseudocyst, 4.1 cm, possib le GI luminal disease. 2.Midepigastric pain, which is mild. 3.Diarrhea after p.o. contrast and CT scan seems to have resolved. According to daughter, mild thic kening of the ascending colon noted on the CT scan on October 31, is resolved on November 02 CT scan. The refore, probably artifact. Recommendation: 1.PPI therapy. 2.When clinical status improves and Cardiology clearance, consider EGD as inpatient outpatient. 3.Continue IV fluids, general with a history of congestive heart failure. Ejection fraction 20 to 2 5%. 4.Continue IV antibiotics. 5.Continue p.r.n. pain medicines and antiemetics. 6.Check stool studies. 7.Continue Cardiology evaluation and therapy and Renal/Nephrology therapy as well. DICTATION ENDS HERE ADRIENNE/SUSHANT Voice ID: [id number] Report ID: [id number]
== END 2017-11-06 15:18 | disposition home or self-care (01) | DRG 292 ==
LOC: ER 14:59 → ERHOLD 18:43 → 4TH 19:32 → 3RD-ICU 11-02 11:46 → 4TH 11-05 11:22
PROVIDERS: ADMIT Hospitalist; ATTEND Family Medicine
DX: I50.23 Acute on chronic systolic (congestive) heart failure (principal); I42.9 Cardiomyopathy, unspecified; N30.00 Acute cystitis without hematuria; N17.9 Acute kidney failure, unspecified; E87.1 Hypo-osmolality and hyponatremia; K86.3 Pseudocyst of pancreas; N39.0 Urinary tract infection, site not specified; E86.0 Dehydration; I10 Essential (primary) hypertension; I25.10 Atherosclerotic heart disease of native coronary artery without angina pectoris; I48.2 Chronic atrial fibrillation; K52.9 Noninfective gastroenteritis and colitis, unspecified; K21.9 Gastro-esophageal reflux disease without esophagitis; I25.2 Old myocardial infarction; Z95.810 Presence of automatic (implantable) cardiac defibrillator; E87.5 Hyperkalemia; E03.9 Hypothyroidism, unspecified; R00.0 Tachycardia, unspecified
CPT/HCPCS: 36415; 71045; 74018; 74176; 74177; 76770; 80048; 80053; 80069; 80076; 81001; 82533; 82570; 82805; 82962; 83605; 83615; 83690; 83735; 84145; 84156; 84439; 84443; 85025; 86160; 87040; 87045; 87046; 87086; 87088; 87493; 88108; 89055; 93005; 93923; 94640; 96361; 96365; 96367; 96375; 97163; 99285; J0696; J0744; J1650; J1940; J2270; J2405; J2765; J7030